=== PATIENT | male | born 1935 | race Caucasian/White ===

== ENCOUNTER 2020-06-27 12:59 | Inpatient (IN) ==
[2020-06-27] MEDS ORDERED: methylPREDNISolone SOD SUCC 125 MG/2 ML VIAL IV ONE (13:05)
[2020-06-27] MEDS ORDERED: AZITHROMYCIN 500 MG in DEXTROSE 5% IN WATER 250 ML IV ONE (13:05)
[2020-06-27] MEDS ORDERED: IPRATROPIUM/ALBUTEROL 3 ML AMPUL.NEB NEB ONE ×2 (13:05→13:06)
[2020-06-27] MEDS: METOPROLOL TARTRATE 5 MG/5 ML VIAL IV SCH ×3 (14:08→16:00)
--- NOTE | 2020-06-27 14:20 | Emergency Department Note ---
SOB HPI General Chief Complaint: Shortness of Breath/Dyspnea Stated Complaint: shortness of breath, hx of COPD Time Seen by Provider: 06/27/20 13:05 Source: patient Mode of arrival: wheelchair Limitations: no limitations History of Present Illness HPI Narrative: Narrative: 85-year-old male presents with increasing shortness of breath over the last 5 days. He is on 2 L of oxygen at home and has had to bump it up to 3 and still cannot catch his breath. He does have severe COPD. States his cough is much worse than usual and he is coughing up green sputum. [facility], they did labs over there, his rapid Covid was negative, chest x-ray showed possible pneumonia. They sent him over here for further evaluation. He arrives with a heart rate in the 140s and is extremely short of breath. Speaking 2 words at a time. Denies fever or chills. No nausea, vomiting, or diarrhea. Does have weakness and generally feels poor. States his breathing is much worse than usual. No nasal congestion or sore throat. No ill contacts. No recent travel. Related Data Home Medications Medication Instructions Recorded Confirmed budesonide-formoterol HFA 160 4 inh INHALATION Q12H 05/20/17 06/27/20 mcg-4.5 mcg/actuation aerosol inhaler ipratropium 0.5 mg-albuterol 3 mg 4 - 5 ml INHALATION DAILY 05/20/17 06/27/20 (2.5 mg base)/3 mL nebulization soln tiotropium bromide 2.5 2 puff INHALATION QDAY 05/20/17 06/27/20 mcg/actuation mist for inhalation Previous Rx's Medication Instructions Recorded Portable Oxygen Concentrator #1 ea 04/20/18 Portable Nebulizer #1 ea 02/16/19 diltiazem HCl 180 mg capsule,24 180 mg PO QDAY #90 cap 07/19/19 hr,extended release rivaroxaban 20 mg tablet 20 mg PO QDAY #90 tab 03/09/20 lisinopril 20 1 tab PO QDAY #90 tab 03/29/20 mg-hydrochlorothiazide 25 mg tablet Allergies Allergy/AdvReac Type Severity Reaction Status Date / Time No Known Drug Allergies Allergy Verified 06/27/20 13:02 Review of Systems ROS ROS Narrative: Narrative: All systems ED: reviewed and negative except as stated. 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) Foreign body in right upper extremity (Acute) Major depressive disorder (Chronic) Sleep-related hypoventilation (Chronic) Osteoarthritis (Chronic) Other benign neoplasm of skin of trunk (Chronic) Actinic keratosis (Chronic) Seborrheic keratosis (Chronic) Tobacco use (Chronic) 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) use of anticoagulants (Chronic) Malignant melanoma (Chronic) Primary generalized hypertrophic osteoarthrosis (Chronic) Obstructive sleep apnea (Chronic) Mitral regurgitation (Chronic) Tricuspid regurgitation (Chronic) Mild aortic sclerosis (Chronic) Left ventricular hypertrophy (Chronic) 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) Peripheral edema (Chronic) History of tobacco use (Chronic) Urinary frequency (Chronic) Rhinitis, allergic (Chronic) Postnasal drip (Chronic) Melanoma of skin (Chronic) Impaired fasting glucose (Chronic) Contracture of palmar fascia (Chronic) Pneumonia (Chronic ~08/2017) Bowel disease (Chronic) Rheumatic fever (Chronic) Hypertension, essential (Chronic) Atrial fibrillation (Chronic) COPD (chronic obstructive pulmonary disease) (Chronic) Emphysema of lung (Chronic) Community acquired pneumonia (Chronic) Atrial fibrillation with RVR (Chronic) Dyspnea (Chronic) Medical History Actinic keratoses (Chronic) Actinic keratosis (Chronic) Atrial fibrillation (Chronic) 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) Bowel disease (Chronic) Chronic hypoxemic respiratory failure (Chronic) Contracture of palmar fascia (Chronic) COPD (chronic obstructive pulmonary disease) (Chronic) Emphysema of lung (Chronic) Hemangioma (Chronic) History of tobacco use (Chronic) Hypertension, essential (Chronic) Impaired fasting glucose (Chronic) Left ventricular hypertrophy (Chronic) 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 (Chronic) 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 (Chronic) Malignant melanoma (Chronic) R arm Medicare annual wellness visit, subsequent (Acute) Melanoma of skin (Chronic) Mild aortic sclerosis (Chronic) Mitral regurgitation (Chronic) Neoplasm of uncertain behavior of skin (Chronic) Obstructive sleep apnea (Chronic) Osteoarthritis (Chronic) Other benign neoplasm of skin of trunk (Chronic) Peripheral edema (Chronic) Pneumonia (Chronic ~08/2017) In hospital 08/29/2017-09/01/2017 with pneumonia Postnasal drip (Chronic) Primary generalized hypertrophic osteoarthrosis (Chronic) Rheumatic fever (Chronic) x2 Rhinitis, allergic (Chronic) Seborrheic keratosis (Chronic) Sleep-related hypoventilation (Chronic) Solar elastosis (Chronic) Tobacco use (Chronic) former smoker Tricuspid regurgitation (Chronic) Urinary frequency (Chronic) Surgical History H/O colonoscopy (Chronic) 2013 H/O hand surgery (Chronic) 2016 History of herniorrhaphy (Chronic) 2001 History of melanoma excision (Chronic) right arm skin cancer Hx of appendectomy (Chronic) 2011 Family History Father Cancer Mother , at 93 Dementia TIA (transient ischemic attack) Sister Diabetes Brother Stroke Other Lung cancer Social History Smoking Status: Former smoker Alcohol Intake Frequency: a few times a week Substance Use: does not use Exam Narrative Narrative: Narrative: General Limitations: no limitations General appearance: Present alert and other (Short of breath and tachypneic on arrival with a respiratory rate in the 30s and speaking 1-2 words at a time due to shortness of breath.) Head Head: Present atraumatic and normocephalic Eye Eye: Present normal appearance, PERRL, EOMI, conjunctival injection and nystagmus ENT ENT: Present normal exam, normal oropharynx, mucous membranes moist, TM's normal bilaterally and normal external ear exam Neck Neck: Present normal inspection and trachea midline; Absent lymphadenopathy Chest Chest: Present symmetric chest wall rise Respiratory Respiratory: Present wheezes (Greatly diminished lung sounds throughout. Not moving much air at all. Faint expiratory wheezing bilaterally. Moist cough present with green sputum. Positive use of accessory muscles.) Cardiovascular Cardiovascular: Present irregular rhythm (A. fib with RVR in the 140s on arrival) Adbominal Abdominal: Present soft and normal bowel sounds; Absent distention, tenderness, guarding, rebound and rigidity Extremities Extremities: Present normal inspection; Absent pedal edema Neurological Neurological: Present alert and oriented X3 Psychiatric Psychiatric: Present normal affect and normal mood Skin Skin: Present warm (WNL), dry, intact and normal color; Absent cool, hot, diaphoretic and rash Course Course Course Narrative: At 1422 I did speak with the hospitalist, Dr. Caldwell who agrees to except this patient. Vital Signs Vital signs: Vital Signs Temperature 99.9 F H 06/27/20 13:00 Pulse Rate 140 H 06/27/20 13:00 Respiratory Rate 26 H 06/27/20 13:00 Blood Pressure 157/68 06/27/20 13:00 Pulse Oximetry (%) 96 06/27/20 13:00 Temperature 99.9 F H 06/27/20 13:00 Pulse Rate 103 H 06/27/20 14:16 Respiratory Rate 24 H 06/27/20 14:31 Blood Pressure 111/66 06/27/20 14:31 Pulse Oximetry (%) 95 06/27/20 14:16 MDM MDM Narrative Medical decision making narrative: Narrative: Lab Data Lab results reviewed: Yes I reviewed the patient's lab results. Lab results narrative: wbc 16.0, rbc 4.46, hgb 13.3, hct 38.8%, lymph .45, mono 1.97 abs neutrophils 13.50, sodium 126, Potassium 4.1, chloride 86, carbon dioxide 26, anion gap 14, BUN 19, creatinine 0.9, proBNP 12,041, TSH 2.62. Urine is grossly negative, clear, pH 6.0, specific gravity 1.013, ketones negative, glucose negative, proteins negative, ketones negative, occult blood negative, nitrate negative, negative leukocytes. Verenice rapid Covid testing over at [facility] was negative. PCR is pending. Patient was given IV azithromycin and hydrated with normal saline. Also given a DuoNeb which did improve air movement. 125 mg of Solu-Medrol IV. Patient will require admission for ongoing IV antibiotic therapy and supportive care due to respiratory distress. Radiology Data Radiology results reviewed: Yes I reviewed the patient's radiology results. Discharge Plan Patient/Caregiver Discharge Instructions Pt seen by EDITORIAL SPECIALIST/PA only: Yes Clinical Impression: Pneumonia, A-fib, Sepsis, History of COPD, Respiratory failure Patient Disposition: Xfer As Inpt ([facility]) Condition: Serious Follow up with: Garth Pederson DO [Primary Care Provider] - Prescriptions: No Action (DME) Portable Oxygen Concentrator Qty: 1 RF: 0 (DME) Portable Nebulizer Qty: 1 RF: 0 diltiazem HCl 180 mg capsule,extended release 24 hr 180 mg PO QDAY Qty: 90 RF: 3 Xarelto 20 mg tablet 20 mg PO QDAY Qty: 90 RF: 3 lisinopril-hydrochlorothiazide 20-25 mg tablet 1 tab PO QDAY Qty: 90 RF: 1 budesonide-formoterol [Symbicort] 160-4.5 mcg/actuation HFA aerosol inhaler 4 inh INHALATION Q12H RF: 0 tiotropium bromide [Spiriva Respimat] 2.5 mcg/actuation mist 2 puff INHALATION QDAY RF: 0 ipratropium-albuterol 0.5 mg-3 mg(2.5 mg base)/3 mL solution for nebulization 4 - 5 ml INHALATION DAILY RF: 0
--- NOTE | 2020-06-27 14:31 | Emergency Department Note ---
SOB HPI <Paulette Latif, STUDENT - Last Filed: 06/27/20 17:41> General Chief Complaint: Shortness of Breath/Dyspnea Stated Complaint: shortness of breath, hx of COPD Time Seen by Provider: 06/27/20 13:05 Source: patient Mode of arrival: wheelchair Limitations: physical limitation (due to shortness of breath ) History of Present Illness HPI Narrative: Narrative: 85-year-old male that was sent over from [facility] care for management of increased shortness of breath with possible pneumonia. He states he is normally on 2l/NC O2 at home and his SaO2 is in the 94-97%. He has had to increase his O2 to 3l/min and is still short of breath with SaO2 < 90%. He reports increased difficulty breathing, cough with sputum production, with intermittent hemoptysis. He denies chest pain, palpitations, fever, chills, nausea or vomiting. Related Data Home Medications Medication Instructions Recorded Confirmed budesonide-formoterol HFA 160 2 puff INHALATION BID 05/20/17 06/27/20 mcg-4.5 mcg/actuation aerosol inhaler ipratropium 0.5 mg-albuterol 3 mg 4 - 5 ml INHALATION DAILY 05/20/17 06/27/20 (2.5 mg base)/3 mL nebulization soln tiotropium bromide 2.5 2 puff INHALATION QDAY 05/20/17 06/27/20 mcg/actuation mist for inhalation Previous Rx's Medication Instructions Recorded Portable Oxygen Concentrator #1 ea 04/20/18 Portable Nebulizer #1 ea 02/16/19 diltiazem HCl 180 mg capsule,24 180 mg PO QDAY #90 cap 07/19/19 hr,extended release rivaroxaban 20 mg tablet 20 mg PO QDAY #90 tab 03/09/20 lisinopril 20 1 tab PO QDAY #90 tab 03/29/20 mg-hydrochlorothiazide 25 mg tablet Allergies Allergy/AdvReac Type Severity Reaction Status Date / Time No Known Drug Allergies Allergy Verified 06/27/20 16:37 Review of Systems <Paulette Latif, STUDENT - Last Filed: 06/27/20 17:41> ROS ROS Narrative: Narrative: All systems ED: reviewed and negative except as stated. PFSH <Paulette Latif, STUDENT - Last Filed: 06/27/20 17:41> Narrative Patient History Narrative: Narrative: Medical/Surgical/Family History All Active Problems Pneumonia (Acute) A-fib (Acute) Sepsis (Acute) History of COPD (Acute) Respiratory failure (Acute) SOB (shortness of breath) (Acute) Medicare annual wellness visit, subsequent (Acute) Chronic hypoxemic respiratory failure (Chronic) Actinic keratoses (Chronic) Hemangioma (Chronic) Lentigines (Chronic) Solar elastosis (Chronic) Neoplasm of uncertain behavior of skin (Chronic) Foreign body in right upper extremity (Acute) Major depressive disorder (Chronic) Sleep-related hypoventilation (Chronic) Osteoarthritis (Chronic) Other benign neoplasm of skin of trunk (Chronic) Actinic keratosis (Chronic) Seborrheic keratosis (Chronic) 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 (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) Malignant melanoma (Chronic) Primary generalized hypertrophic osteoarthrosis (Chronic) Obstructive sleep apnea (Chronic) Mitral regurgitation (Chronic) Tricuspid regurgitation (Chronic) Mild aortic sclerosis (Chronic) Left ventricular hypertrophy (Chronic) 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) Peripheral edema (Chronic) History of tobacco use (Chronic) Urinary frequency (Chronic) Rhinitis, allergic (Chronic) Postnasal drip (Chronic) Melanoma of skin (Chronic) Impaired fasting glucose (Chronic) Contracture of palmar fascia (Chronic) Pneumonia (Chronic ~08/2017) Bowel disease (Chronic) Rheumatic fever (Chronic) Hypertension, essential (Chronic) Atrial fibrillation (Chronic) COPD (chronic obstructive pulmonary disease) (Chronic) Emphysema of lung (Chronic) Community acquired pneumonia (Chronic) Atrial fibrillation with RVR (Chronic) Dyspnea (Chronic) Medical History Actinic keratoses (Chronic) Actinic keratosis (Chronic) Atrial fibrillation (Chronic) 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) Bowel disease (Chronic) Chronic hypoxemic respiratory failure (Chronic) Contracture of palmar fascia (Chronic) COPD (chronic obstructive pulmonary disease) (Chronic) Emphysema of lung (Chronic) Hemangioma (Chronic) History of tobacco use (Chronic) Hypertension, essential (Chronic) Impaired fasting glucose (Chronic) Left ventricular hypertrophy (Chronic) Lentigines (Chronic) long-term (current) use of anticoagulants (Chronic) Malignant melanoma (Chronic) R arm Medicare annual wellness visit, subsequent (Acute) Melanoma of skin (Chronic) Mild aortic sclerosis (Chronic) Mitral regurgitation (Chronic) Neoplasm of uncertain behavior of skin (Chronic) Obstructive sleep apnea (Chronic) Osteoarthritis (Chronic) Other benign neoplasm of skin of trunk (Chronic) Peripheral edema (Chronic) Pneumonia (Chronic ~08/2017) In hospital 08/29/2017-09/01/2017 with pneumonia Postnasal drip (Chronic) Primary generalized hypertrophic osteoarthrosis (Chronic) Rheumatic fever (Chronic) x2 Rhinitis, allergic (Chronic) Seborrheic keratosis (Chronic) Sleep-related hypoventilation (Chronic) Solar elastosis (Chronic) Tobacco use (Chronic) former smoker Tricuspid regurgitation (Chronic) Urinary frequency (Chronic) Surgical History H/O colonoscopy (Chronic) 2013 H/O hand surgery (Chronic) 2016 History of herniorrhaphy (Chronic) 2000 History of melanoma excision (Chronic) right arm skin cancer Hx of appendectomy (Chronic) 2011 Family History Father Cancer Mother , at 93 Dementia TIA (transient ischemic attack) Sister Diabetes Brother Stroke Other Lung cancer Social History Smoking Status: Former smoker Alcohol Intake Frequency: a few times a week Substance Use: does not use Exam <Paulette Latif STUDENT - Last Filed: 06/27/20 17:41> Narrative Narrative: Narrative: General Limitations: physical limitation (due to shortness of breath ) General appearance: Present alert and in distress Head Head: Present atraumatic, normocephalic and normal inspection Eye Eye: Present normal appearance and PERRL ENT ENT: Present normal exam, normal oropharynx and mucous membranes moist Neck Neck: Present normal inspection, full ROM and trachea midline; Absent tenderness Chest Chest: Present symmetric chest wall rise Respiratory Respiratory: Present respiratory distress, rales/crackles, wheezes and accessory muscle use Cardiovascular Cardiovascular: Present tachycardia and irregular rhythm Adbominal Abdominal: Present soft and distention; Absent tenderness Rectal Rectal: Present deferred Extremities Extremities: Present normal inspection Neurological Neurological: Present alert, oriented X3 and CN II-XII intact Psychiatric Psychiatric: Present normal affect and normal mood Skin Skin: Present warm (WNL), dry and pallor Course <Paulette Latif, STUDENT - Last Filed: 06/27/20 17:41> Vital Signs Vital signs: Vital Signs Temperature 99.9 F H 06/27/20 13:00 Pulse Rate 140 H 06/27/20 13:00 Respiratory Rate 26 H 06/27/20 13:00 Blood Pressure 157/68 06/27/20 13:00 Pulse Oximetry (%) 96 06/27/20 13:00 Temperature 98.7 F 06/27/20 17:01 Pulse Rate 71 06/27/20 19:02 Respiratory Rate 25 H 06/27/20 19:02 Blood Pressure 135/89 06/27/20 19:02 Pulse Oximetry (%) 97 06/27/20 19:02 <OPAL HymanP - Last Filed: 06/27/20 19:08> Vital Signs Vital signs: Vital Signs Temperature 99.9 F H 06/27/20 13:00 Pulse Rate 140 H 06/27/20 13:00 Respiratory Rate 26 H 06/27/20 13:00 Blood Pressure 157/68 06/27/20 13:00 Pulse Oximetry (%) 96 06/27/20 13:00 Temperature 98.7 F 06/27/20 17:01 Pulse Rate 71 06/27/20 19:02 Respiratory Rate 25 H 06/27/20 19:02 Blood Pressure 135/89 06/27/20 19:02 Pulse Oximetry (%) 97 06/27/20 19:02 MDM <Paulette Latif, STUDENT - Last Filed: 06/27/20 17:41> MDM Narrative Medical decision making narrative: Narrative: Patient in respiratory distress with increased oxygen needs. SaO2 improved after HHN to 96%. ABG with PH of 7.47, CO2 of 36, PaO2 of 72%. WBC is elevated at 16. Serum lactate elevated at 2.1, procalcitonin elevated at 0.42. HR rapid and irregular, EKG results show afib with RVR, rates 140-160's. HR controlled with IV metoprolol. Patient is anticoagulated with home rivaroxaban 20 mg PO QD. Verenice negative, [facility] COVID test done at [facility] is pending. CXR with possible BLL pneumonia in the setting of COPD. The hospitalist was consulted for admission for ongoing treatment of his pneumonia with hypxia and a-fib RVR. The case was discussed with Dr. Caldwell, he accepted the patient for admission. CBC and CMP were also done at [facility] today, we did not repeat in the ED. Lab Data Labs: Lab Results 06/27/20 06/27/20 Range/Units 12:20 13:15 VBG Lactic Acid 2.1 H (0.5-2.0) mmol/L Procalcitonin 0.42 H (<0.10) ng/mL <ITZEL Hyman - Last Filed: 06/27/20 19:08> Lab Data Labs: Lab Results 06/27/20 06/27/20 Range/Units 12:20 13:15 VBG Lactic Acid 2.1 H (0.5-2.0) mmol/L Procalcitonin 0.42 H (<0.10) ng/mL Discharge Plan Patient/Caregiver Discharge Instructions Pt seen by ENVIRONMENTAL CONSERVATION PROFESSOR/PA only: Yes Clinical Impression: Pneumonia, A-fib, Sepsis, History of COPD, Respiratory failure Patient Disposition: Xfer As Inpt ([facility]) Condition: Serious Discharge Date/Time: 06/27/20 15:26
--- NOTE | 2020-06-27 14:32 | Internal Med History&Physical ---
HPI History of Present Illness Patient information: Note initiated : 06/27/20 at 2:29 pm Service Date, if different from initiated Date: [] Patient: Christoph Neff a 85 y/o M admitted on for SOB, Hx Of COPD. Chief Complaint: Shortness of breath History of present illness: Mr. Neff is a 85 year old M with history of O2 dependent COPD/HTN/A. fib/anticoagulation who presents to the ER with worsening shortness of breath for the last 2 weeks. Symptoms accompanied with increasing yellow productive sputum, fatigue, weakness, inability to function. Over the last couple of days he has had profound loss of appetite/fatigue myalgia and low-grade fever. Patient has not been able to perform ADLs. He went to the urgent care with above symptoms. Initial work-up was consistent with bilateral pneumonia/elevated white count at 16, elevated lactate at 2.6, A. fib RVR, sodium 126. Rapid Covid negative. Covid PCR pending. Hospitalist service was consulted after patient was started on metoprolol for rate control. At the time of evaluation patient is unable to talk in full sentences. He is anxious/restless. Is currently on 3 L oxygen. He endorses to history as above. Lives with his Jade. Denies recent exposure to sick contacts including Covid symptoms. Endorses to myalgia, but no dysuria: Bloody stool, diarrhea, joint pain or rash Review of systems 10 point review system was performed and is negative except for 1 discussed above PFSH PFSH All Active Problems Pneumonia (Acute) A-fib (Acute) Sepsis (Acute) History of COPD (Acute) Respiratory failure (Acute) SOB (shortness of breath) (Acute) Medicare annual wellness visit, subsequent (Acute) Chronic hypoxemic respiratory failure (Chronic) Actinic keratoses (Chronic) Hemangioma (Chronic) Lentigines (Chronic) Solar elastosis (Chronic) Neoplasm of uncertain behavior of skin (Chronic) Foreign body in right upper extremity (Acute) Major depressive disorder (Chronic) Sleep-related hypoventilation (Chronic) Osteoarthritis (Chronic) Other benign neoplasm of skin of trunk (Chronic) Actinic keratosis (Chronic) Seborrheic keratosis (Chronic) 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 (Chronic) 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) Malignant melanoma (Chronic) Primary generalized hypertrophic osteoarthrosis (Chronic) Obstructive sleep apnea (Chronic) Mitral regurgitation (Chronic) Tricuspid regurgitation (Chronic) Mild aortic sclerosis (Chronic) Left ventricular hypertrophy (Chronic) 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) Peripheral edema (Chronic) History of tobacco use (Chronic) Urinary frequency (Chronic) Rhinitis, allergic (Chronic) Postnasal drip (Chronic) Melanoma of skin (Chronic) Impaired fasting glucose (Chronic) Contracture of palmar fascia (Chronic) Pneumonia (Chronic ~08/2017) Bowel disease (Chronic) Rheumatic fever (Chronic) Hypertension, essential (Chronic) Atrial fibrillation (Chronic) COPD (chronic obstructive pulmonary disease) (Chronic) Emphysema of lung (Chronic) Community acquired pneumonia (Chronic) Atrial fibrillation with RVR (Chronic) Dyspnea (Chronic) Medical History Actinic keratoses (Chronic) Actinic keratosis (Chronic) Atrial fibrillation (Chronic) 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) Bowel disease (Chronic) Chronic hypoxemic respiratory failure (Chronic) Contracture of palmar fascia (Chronic) COPD (chronic obstructive pulmonary disease) (Chronic) Emphysema of lung (Chronic) Hemangioma (Chronic) History of tobacco use (Chronic) Hypertension, essential (Chronic) Impaired fasting glucose (Chronic) Left ventricular hypertrophy (Chronic) 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 (Chronic) 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) Malignant melanoma (Chronic) R arm Medicare annual wellness visit, subsequent (Acute) Melanoma of skin (Chronic) Mild aortic sclerosis (Chronic) Mitral regurgitation (Chronic) Neoplasm of uncertain behavior of skin (Chronic) Obstructive sleep apnea (Chronic) Osteoarthritis (Chronic) Other benign neoplasm of skin of trunk (Chronic) Peripheral edema (Chronic) Pneumonia (Chronic ~08/2017) In hospital 08/29/2017-09/01/2017 with pneumonia Postnasal drip (Chronic) Primary generalized hypertrophic osteoarthrosis (Chronic) Rheumatic fever (Chronic) x2 Rhinitis, allergic (Chronic) Seborrheic keratosis (Chronic) Sleep-related hypoventilation (Chronic) Solar elastosis (Chronic) Tobacco use (Chronic) former smoker Tricuspid regurgitation (Chronic) Urinary frequency (Chronic) Surgical History H/O colonoscopy (Chronic) 2012 H/O hand surgery (Chronic) 2016 History of herniorrhaphy (Chronic) 2000 History of melanoma excision (Chronic) right arm skin cancer Hx of appendectomy (Chronic) 2011 Family History Father Cancer Mother , at 93 Dementia TIA (transient ischemic attack) Sister Diabetes Brother Stroke Other Lung cancer Social History marital status: smoking status: Former smoker quit date: 05/26/81 alcohol intake frequency: a few times a week substance use type: does not use MEDS/ALLERGIES Home Medications and Allergies Home Medications Medication Instructions Recorded Confirmed Type budesonide-formoterol HFA 160 4 inh INHALATION Q12H 05/20/17 06/27/20 History mcg-4.5 mcg/actuation aerosol inhaler ipratropium 0.5 mg-albuterol 3 mg 4 - 5 ml INHALATION DAILY 05/20/17 06/27/20 History (2.5 mg base)/3 mL nebulization soln tiotropium bromide 2.5 2 puff INHALATION QDAY 05/20/17 06/27/20 History mcg/actuation mist for inhalation Portable Oxygen Concentrator #1 ea 04/20/18 06/27/20 Rx Portable Nebulizer #1 ea 02/16/19 06/27/20 Rx diltiazem HCl 180 mg capsule,24 180 mg PO QDAY #90 cap 07/19/19 06/27/20 Rx hr,extended release rivaroxaban 20 mg tablet 20 mg PO QDAY #90 tab 03/09/20 06/27/20 Rx lisinopril 20 1 tab PO QDAY #90 tab 03/29/20 06/27/20 Rx mg-hydrochlorothiazide 25 mg tablet Allergies Allergy/AdvReac Type Severity Reaction Status Date / Time No Known Drug Allergies Allergy Verified 06/27/20 13:02 EXAM Constitutional Vitals: Temp Pulse Resp BP Pulse Ox 99.9 F H 103 H 22 119/77 95 06/27/20 13:00 06/27/20 14:16 06/27/20 14:16 06/27/20 14:16 06/27/20 14:16 Alert but anxious, labored breathing Head normocephalic Oral cavity moist No ear nose discharge Eye movement symmetrical Neck supple no lymphadenopathy S1-S2 irregular tachycardia narrow complex Labored breathing on 4 L oxygen Nondistended nontender abdomen Lower extremity no cyanosis clubbing or joint swelling Skin no suspicious lesion Psych anxious but alert cooperative Neuro normal higher function DATA Data Completed and Pending Labs: Labs from last 24 hours 06/27/20 06/27/20 13:15 12:20 VBG Lactic Acid Pending Procalcitonin Pending A/P Narrative A/P Narrative: * Acute hypoxic respiratory failure-secondary to COPD exacerbation/bilateral pneumonia. Initiate noninvasive mechanical ventilation for increased work of breathing * Bilateral [id number] antibiotic coverage. Pancultures/aspiration precautions * Severe sepsis-sepsis management per guidelines. Elevated lactate/leukocytosis. On broad-spectrum antibiotics * A. fib RVR-Cardizem drip. Likely sepsis endorgan dysfunction * COPD exacerbation-IV steroids/bronchodilators/pulmonary toilet * History of hypertension. Hold antihypertensives until systolics over 140/sepsis resolves * Anticoagulation for CVA prophylaxis on rivaroxaban * Full code Plan * Inpatient ICU admission, [place] 2 score over 17 significant hypomotility * Noninvasive mechanical ventilation * Serial blood gas/chest imaging * Broad antibiotic coverage * Diltiazem drip * Sepsis management guidelines * PT OT nutrition support * Discharge planning per case management Time Spent With Patient Time: Total time spent is greater than 50% in coordination of care (as documented) at patient's floor/unit and/or counseling patient:
[2020-06-27] MEDS ORDERED: 0.9 % SODIUM CHLORIDE 1,000 ML IV ONE (14:33)
[2020-06-27] MEDS ORDERED: METOPROLOL TARTRATE 5 MG/5 ML VIAL IV PRN (15:28)
[2020-06-27] MEDS ORDERED: MELATONIN 3 MG TABLET PO PRN (15:28)
[2020-06-27] MEDS ORDERED: POTASSIUM CHLORIDE 40 MEQ in DEXTROSE 5% IN WATER 500 ML IV PRN (15:28)
[2020-06-27] MEDS ORDERED: MAGNESIUM SULFATE 2 GM/50 ML BAG IV PRN (15:28)
[2020-06-27] MEDS ORDERED: ACETAMINOPHEN 650 MG/65 ML BAG IV PRN (15:28)
[2020-06-27] MEDS ORDERED: ONDANSETRON 4 MG/2 ML VIAL IV PRN (15:28)
[2020-06-27] MEDS ORDERED: POTASSIUM CHLORIDE 20 MEQ PACKET PO PRN (15:28)
[2020-06-27] MEDS ORDERED: ONDANSETRON 4 MG ODT TABLET SL PRN (15:28)
[2020-06-27] MEDS ORDERED: BISACODYL 10 MG SUPP.RECT PR PRN (15:28)
[2020-06-27] MEDS ORDERED: ACETAMINOPHEN 325 MG TABLET PO PRN (15:28)
[2020-06-27] MEDS ORDERED: DILTIAZEM 125 MG in 0.9 % SODIUM CHLORIDE 100 ML IV SCH (15:28)
[2020-06-27] MEDS ORDERED: BUDESONIDE FORMOTEROL INHALATION SCH (15:28)
[2020-06-27] MEDS ORDERED: POLYETHYLENE GLYCOL 3350 17 GM PACKET PO PRN (15:28)
[2020-06-27] MEDS ORDERED: PIPERACILLIN SODIUM/TAZOBACTAM 3.375 GM in DEXTROSE 5% IN WATER 50 ML IV SCH (15:28)
[2020-06-27] MEDS: 0.9 % SODIUM CHLORIDE 1,000 ML IV SCH (15:43)
[2020-06-27] MEDS: PIPERACILLIN SODIUM/TAZOBACTAM 3.375 GM in DEXTROSE 5% IN WATER 50 ML IV SCH ×3 (15:58→23:46)
[2020-06-27] MEDS: DILTIAZEM 125 MG in 0.9 % SODIUM CHLORIDE 100 ML IV SCH (15:58)
[2020-06-27] MEDS ORDERED: IPRATROPIUM/ALBUTEROL 3 ML AMPUL.NEB NEB PRN (17:48)
[2020-06-27] MEDS: IPRATROPIUM/ALBUTEROL 3 ML AMPUL.NEB NEB PRN ×2 (17:50→21:45)
[2020-06-27] MEDS: SENNOSIDES/DOCUSATE SODIUM 1 TAB TABLET PO SCH (20:15)
[2020-06-27] MEDS: DOCUSATE SODIUM 100 MG CAPSULE PO SCH (20:15)
[2020-06-27] MEDS: 0.9 % SODIUM CHLORIDE 10 ML SYRINGE IV SCH (20:16)
[2020-06-27] MEDS: BUDESONIDE FORMOTEROL INH SCH (20:54)
[2020-06-27] MEDS: methylPREDNISolone SOD SUCC 125 MG/2 ML VIAL IV SCH (20:59)
[2020-06-27] MEDS ORDERED: HEPARIN 5,000 UNIT/ML VIAL SQ SCH (21:00)
[2020-06-27] MEDS: BUDESONIDE 0.5 MG/2 ML AMPUL.NEB NEB SCH (21:45)
[2020-06-28] MEDS: DILTIAZEM 125 MG in 0.9 % SODIUM CHLORIDE 100 ML IV SCH (04:51)
[2020-06-28 06:13] LABS: Basophils # (Auto) 0.02 K/mcL (0.00-0.20); Basophils % (Auto) 0.2 % (0.0-2.0); Eosinophils # (Auto) 0 K/mcL (0.00-0.70); Eosinophils % (Auto) 0 % (0.0-7.0); Hematocrit 35.9 % (41.0-55.0); Hemoglobin 12.4 g/dL (13.5-16.5); Lymphocytes # (Auto) 0.41 K/mcL (1.50-4.80); Mean Cell Volume 87.1 fL (80.0-100.0); Mean Corpuscular HGB Conc 34.5 g/dL (31.0-36.0); Mean Platelet Volume 9.2 fL (7.4-10.4); Monocytes # (Auto) 0.23 K/mcL (0.10-0.90); Monocytes % (Auto) 2.3 % (1.0-12.0); Neutrophils % (Auto) 93.5 % (38.0-78.0); Platelet Count 322 K/mcL (140-440); RBC 4.12 M/mcL (4.50-5.90); Red Cell Distribution Width 12.6 % (11.5-14.5); WBC 10.2 K/mcL (4.5-11.0)
[2020-06-28 06:39] LABS: ALT/SGPT 25 U/L (<40); AST/SGOT 33 U/L (<40); Albumin 2.8 gm/dL (3.2-5.2); Albumin/Globulin Ratio 0.9 (1.0-2.3); Alkaline Phosphatase 71 U/L (39-117); Bilirubin,Direct < 0.2 mg/dL (<0.3); Bilirubin,Total 0.3 mg/dL (0.1-1.0); Blood Urea Nitrogen 17 mg/dL (8-23); Calcium 8.7 mg/dL (8.6-10.4); Carbon Dioxide 25 mmol/L (22-30); Chloride 90 mmol/L (96-108); Globulin 3.2 gm/dL (2.2-3.7); Glomerular Filtration Rate 86; Glucose 128 mg/dL (70-105); Lactate Dehydrogenase 184 U/L (135-225); Phosphorous 3.7 mg/dL (2.5-4.5); Triglycerides 46 mg/dL (<150); Uric Acid 3.8 mg/dL (2.5-8.0)
[2020-06-28 06:50] LABS: Ferritin 526.7 ng/mL (30.0-400.0)
[2020-06-28] MEDS: PIPERACILLIN SODIUM/TAZOBACTAM 3.375 GM in DEXTROSE 5% IN WATER 50 ML IV SCH ×4 (07:08→23:45)
[2020-06-28] MEDS: 0.9 % SODIUM CHLORIDE 10 ML SYRINGE IV SCH ×3 (07:09→20:44)
[2020-06-28] MEDS: BUDESONIDE 0.5 MG/2 ML AMPUL.NEB NEB SCH ×2 (08:33→20:10)
[2020-06-28] MEDS ORDERED: IPRATROPIUM/ALBUTEROL 3 ML AMPUL.NEB NEB SCH (09:00)
[2020-06-28] MEDS ORDERED: TIOTROPIUM BROMIDE INHALATION SCH (09:00)
[2020-06-28] MEDS: DILTIAZEM 180 MG CAP.XL.24H PO SCH (09:16)
[2020-06-28] MEDS: methylPREDNISolone SOD SUCC 125 MG/2 ML VIAL IV SCH ×2 (09:17→20:44)
[2020-06-28] MEDS: MULTIVIT,THER IRON,CA,FA & MIN 1 TABLET PO SCH (09:17)
[2020-06-28] MEDS: DOCUSATE SODIUM 100 MG CAPSULE PO SCH ×2 (09:17→20:45)
[2020-06-28] MEDS: BUDESONIDE FORMOTEROL INH SCH ×2 (09:17→20:45)
[2020-06-28] MEDS: TIOTROPIUM BROMIDE 18 MCG INHALANT INH SCH (09:18)
[2020-06-28] MEDS ORDERED: DILTIAZEM 125 MG in 0.9 % SODIUM CHLORIDE 100 ML IV PRN (10:00)
--- NOTE | 2020-06-28 10:16 | Internal Med Progress Note ---
SUBJECTIVE Subjective Patient information: Note initiated : 06/28/20 at 10:12 am Service Date, if different from initiated Date: [] Patient: Christoph Neff a 85 y/o M admitted on 06/27/20 for SOB, Hx Of COPD. Chief Complaint: [] Interval history: Mr. Neff is a 85 year old M with history of O2 dependent COPD/HTN/A. fib/anticoagulation who presents to the ER with worsening shortness of breath for the last 2 weeks. Symptoms accompanied with increasing yellow productive sputum, fatigue, weakness, inability to function. Over the last couple of days he has had profound loss of appetite/fatigue myalgia and low-grade fever. Patient has not been able to perform ADLs. He went to the urgent care with above symptoms. Initial work-up was consistent with bilateral pneumonia/elevated white count at 16, elevated lactate at 2.6, A. fib RVR, sodium 126. Rapid Covid negative. Covid PCR pending. Hospitalist service was consulted after patient was started on metoprolol for rate control. At the time of evaluation patient is unable to talk in full sentences. He is anxious/restless. Is currently on 3 L oxygen. He endorses to history as above. Lives with his Jade. Denies recent exposure to sick contacts including Covid symptoms. Endorses to myalgia, but no dysuria: Bloody stool, diarrhea, joint pain or rash 2/3-patient doing a lot better. Currently on 3 days oxygen. Overnight on CPAP. Able to talk in full sentences. Covid negative. Rhinovirus positive. On antibiotic coverage for bilateral pneumonia. Continue aspiration precautions/ST eval today. Rate controlled on Cardizem drip. Transition to oral Cardizem. Continue steroids/bronchodilators/pulmonary toileting and nutrition support. Constitutional Vitals: Vital Signs Temp Pulse Resp BP Pulse Ox 97.8 F 92 H 20 113/70 97 06/28/20 08:01 06/28/20 09:39 06/28/20 09:39 06/28/20 09:01 06/28/20 09:39 Period Temp Pulse Resp BP Sys/Richardson Pulse Ox Last 24 Hr 97.6 F-99.9 F 52-140 17-36 88-157/60-127 88-100 Intake and Output 06/27/20 06/28/20 06/28/20 21:59 05:59 13:59 Intake Total 1350 550 290 Output Total 175 1325 Balance 1175 -775 290 Weight 84.141 kg Alert oriented Minimally labored breathing on 3 L oxygen Nondistended abdomen No anxiety Intake & Output: Intake & Output 06/27/20 06/28/20 06/28/20 21:59 05:59 13:59 Intake Total 1350 550 290 Output Total 175 1325 Balance 1175 -775 290 Weight 84.141 kg Intake: IV 1350 50 50 Sodium Chloride 0.9% 1,000 ml @ 1000 Wide Open IV BOLUS ONE Rx#: [id number] Zithromax 500 mg In Dextrose 5% 250 in Water 250 ml @ 250 mls/hr IV ONCE ONE Rx#:[id number] Zosyn 3.375 gm In Dextrose 5% 100 50 50 in Water 50 ml @ 100 mls/hr IV Q6H [facility] Rx#:[id number] Oral 500 240 Output: Void Amount 175 1325 Other: Percent of Meal Consumed 100% Urine Appearance Clear Clear Urine Color Dark Yellow Pale Urine Odor Normal Normal OBJ DATA Labs CBC & Chem 7: 06/28/20 04:56 06/28/20 04:56 Labs: Abnormal Lab Results 06/28/20 06/28/20 06/27/20 04:56 04:56 13:15 RBC 4.12 L Hgb 12.4 L Hct 35.9 L Neut % (Auto) 93.5 H Lymph % (Auto) 4.0 L Lymph # (Auto) 0.41 L Absolute Neutrophils 9.51 H VBG Lactic Acid 2.1 H Sodium 128 L Chloride 90 L Glucose 128 H Ferritin 526.7 H C-Reactive Protein 19.20 H Albumin 2.8 L Albumin/Globulin Ratio 0.9 L Procalcitonin 06/27/20 12:20 RBC Hgb Hct Neut % (Auto) Lymph % (Auto) Lymph # (Auto) Absolute Neutrophils VBG Lactic Acid Sodium Chloride Glucose Ferritin C-Reactive Protein Albumin Albumin/Globulin Ratio Procalcitonin 0.42 H Meds: Medications Acetaminophen (Tylenol) 650 mg PO Q4-6HP PRN; Protocol PRN Reason: Per Pain Protocol/Fever > 101 Albuterol/Ipratropium (Duoneb) 3 ml NEB Q4HP PRN PRN Reason: Shortness Of Breath Last Admin: 06/27/20 17:50 Dose: 3 ml Documented by: Bisacodyl (Dulcolax) 10 mg MT Q2-3DAYS PRN PRN Reason: Constipation Budesonide (Pulmicort) 0.5 mg NEB Q12 [facility] Last Admin: 06/28/20 08:33 Dose: 0.5 mg Documented by: Diltiazem HCl (Cardizem Cd) 180 mg PO DAILY [facility] Last Admin: 06/28/20 09:16 Dose: 180 mg Documented by: Docusate Sodium (Colace) 100 mg PO BID [facility] Last Admin: 06/28/20 09:17 Dose: 100 mg Documented by: Potassium Chloride 40 meq/ (Dextrose) 520 mls @ 130 mls/hr IV UD PRN PRN Reason: K+ = or < 3.5 Magnesium Sulfate (Magnesium Sulfate) 2 gm in 50 mls @ 50 mls/hr IV UD PRN PRN Reason: MG = or < 1.7 Acetaminophen (Ofirmev) 650 mg in 65 mls @ 130 mls/hr IV Q6HP PRN; Protocol PRN Reason: Per Pain Protocol/Fever > 101 Sodium Chloride (Sodium Chloride 0.9%) 1,000 mls @ 50 mls/hr IV .Q20H [facility] Stop: 06/30/20 03:27 Last Admin: 06/27/20 15:43 Dose: Not Given Documented by: Piperacillin Sod/Tazobactam (Sod 3.375 gm/ Dextrose) 50 mls @ 100 mls/hr IV Q6H [facility]; Protocol Last Infusion: 06/28/20 07:40 Dose: Infused Documented by: Diltiazem HCl 125 mg/ Sodium (Chloride) 125 mls @ 5 mls/hr IV Q12HP PRN; Protocol PRN Reason: TITRATE TO KEEP HR<100,SBP>90 Iron Carb/Multivit/Equipment Processer Storage/Folic Acid (Multivitamin W/Minerals) 1 tab PO DAILY [facility] Last Admin: 06/28/20 09:17 Dose: 1 tab Documented by: Melatonin (Melatonin 3mg Tablet) 3 mg PO HSP PRN PRN Reason: Insomnia Methylprednisolone Sodium Succinate (Solu-Medrol) 60 mg IV Q12 [facility] Last Admin: 06/28/20 09:17 Dose: 60 mg Documented by: Metoprolol Tartrate (Lopressor) 5 mg IV Q5M PRN PRN Reason: Heart Rate > 140 bpm Ondansetron HCl (Zofran Odt) 4 mg SL Q4-6HP PRN; Protocol PRN Reason: Nausea And Vomiting Ondansetron HCl (Zofran) 4 mg IV Q4-6HP PRN; Protocol PRN Reason: Nausea And Vomiting Budesonide- Formoterol [ Symbicort] 160-4.5 Mcg/Act Inhaler 1 dose INH BID [facility] Last Admin: 06/28/20 09:17 Dose: Not Given Documented by: Polyethylene Glycol (Miralax) 17 gm PO DAILYP PRN PRN Reason: Constipation Potassium Chloride (Klor-Con) 40 meq PO DAILYP PRN PRN Reason: K+ < 3.5 Rivaroxaban (Xarelto) 20 mg PO QPMCC [facility] Senna/Docusate Sodium (Senna Plus Tablet) 1 tab PO HS [facility] Last Admin: 06/27/20 20:15 Dose: Not Given Documented by: Sodium Chloride (Saline Flush) 10 ml IV Q8 [facility] Last Admin: 06/28/20 07:09 Dose: Not Given Documented by: Tiotropium [place] (Spiriva) 36 mcg INH DAILY [facility] Last Admin: 06/28/20 09:18 Dose: Not Given Documented by: A/P Narrative A/P Narrative: * Acute hypoxic respiratory failure-secondary to COPD exacerbation/bilateral pneumonia. Clinically improving with management per guidelines currently on 3 to 4 L oxygen. * Bilateral peygshudb-[id number] broad-spectrum antibiotic coverage. Rhinovirus positive. Sputum cultures pending. White count down from 16-10.2. * Severe sepsis-sepsis management per guidelines. Clinically improving with management per guidelines. * A. fib RVR-rate controlled on Cardizem drip. Transition to oral Cardizem * Euvolemic hyponatremia sodium improved from 1 26-1 28. Likely secondary to thiazide use. * COPD exacerbation-IV steroids/bronchodilators/pulmonary toilet * History of hypertension. Restart antihypertensives once systolics over 140/sepsis resolves * Anticoagulation for CVA prophylaxis on rivaroxaban * Full code Plan * Wean oxygen as tolerated * Pulmonary toilet/bronchodilators/steroids/antibiotics/ST eval * Transition to oral diltiazem * Sepsis management guidelines * PT OT nutrition support * Discharge planning per case management Time Spent With Patient Time: Total time spent is greater than 50% in coordination of care (as documented) at patient's floor/unit and/or counseling patient: QUALITY VTE Deep Vein Thrombosis/Pulmonary Embolism Present on Admission: No
[2020-06-28] MEDS: 0.9 % SODIUM CHLORIDE 1,000 ML IV SCH (15:40)
[2020-06-28] MEDS ORDERED: RIVAROXABAN 20 MG TABLET PO SCH (17:30)
[2020-06-28] MEDS: IPRATROPIUM/ALBUTEROL 3 ML AMPUL.NEB NEB PRN (20:10)
[2020-06-28] MEDS: SENNOSIDES/DOCUSATE SODIUM 1 TAB TABLET PO SCH (20:44)
[2020-06-29] MEDS: IPRATROPIUM/ALBUTEROL 3 ML AMPUL.NEB NEB PRN ×2 (02:12→19:53)
[2020-06-29] MEDS: PIPERACILLIN SODIUM/TAZOBACTAM 3.375 GM in DEXTROSE 5% IN WATER 50 ML IV SCH ×5 (05:51→23:35)
[2020-06-29] MEDS: 0.9 % SODIUM CHLORIDE 10 ML SYRINGE IV SCH ×3 (05:52→21:08)
[2020-06-29 06:29] LABS: Basophils # (Auto) 0.02 K/mcL (0.00-0.20); Basophils % (Auto) 0.1 % (0.0-2.0); Eosinophils # (Auto) 0 K/mcL (0.00-0.70); Eosinophils % (Auto) 0 % (0.0-7.0); Hematocrit 35.6 % (41.0-55.0); Hemoglobin 11.9 g/dL (13.5-16.5); Lymphocytes # (Auto) 0.54 K/mcL (1.50-4.80); Lymphocytes % (Auto) 3.2 % (15.0-49.0); Mean Cell Volume 90.4 fL (80.0-100.0); Mean Corpuscular HGB Conc 33.4 g/dL (31.0-36.0); Mean Platelet Volume 8.9 fL (7.4-10.4); Monocytes # (Auto) 0.58 K/mcL (0.10-0.90); Monocytes % (Auto) 3.4 % (1.0-12.0); Neutrophils % (Auto) 93.3 % (38.0-78.0); Platelet Count 333 K/mcL (140-440); RBC 3.94 M/mcL (4.50-5.90); Red Cell Distribution Width 12.8 % (11.5-14.5); WBC 16.9 K/mcL (4.5-11.0)
--- NOTE | 2020-06-29 06:35 | XRay Report ---
INDICATION: Interval Change. Dyspnea. COPD TECHNIQUE: AP portable semiupright chest x-ray COMPARISON: Previous chest x-rays dated 06/27/2020 FINDINGS: Lungs:Lungs are negative. No focal pulmonary parenchymal infiltrate or mass Heart, vascular:No significant cardiomegaly. Pulmonary vascularity is normal. No pulmonary edema or pulmonary congestion Mediastinum, delta:No mediastinal widening. No hilar mass Pleura:No pleural fluid. No pleural-based mass or calcification Skeletal:Negative. IMPRESSION: 1. Negative AP chest x-ray. 2. No interval change Interpreted and Authenticated by: Garth Boateng 06/29/20
[2020-06-29 07:19] LABS: ALT/SGPT 31 U/L (<40); AST/SGOT 36 U/L (<40); Albumin 2.9 gm/dL (3.2-5.2); Alkaline Phosphatase 68 U/L (39-117); Bilirubin,Direct < 0.2 mg/dL (<0.3); Bilirubin,Total 0.2 mg/dL (0.1-1.0); Blood Urea Nitrogen 20 mg/dL (8-23); Calcium 8.7 mg/dL (8.6-10.4); Carbon Dioxide 26 mmol/L (22-30); Chloride 95 mmol/L (96-108); Glomerular Filtration Rate 86; Glucose 148 mg/dL (70-105); Lactate Dehydrogenase 200 U/L (135-225); Triglycerides 58 mg/dL (<150)
[2020-06-29] MEDS: methylPREDNISolone SOD SUCC 125 MG/2 ML VIAL IV SCH ×2 (08:15→21:07)
[2020-06-29] MEDS: TIOTROPIUM BROMIDE 18 MCG INHALANT INH SCH (08:15)
[2020-06-29] MEDS: DILTIAZEM 180 MG CAP.XL.24H PO SCH (08:16)
[2020-06-29] MEDS: MULTIVIT,THER IRON,CA,FA & MIN 1 TABLET PO SCH (08:16)
[2020-06-29] MEDS: DOCUSATE SODIUM 100 MG CAPSULE PO SCH ×3 (08:16→21:07)
[2020-06-29] MEDS: BUDESONIDE FORMOTEROL INH SCH ×2 (08:17→21:08)
[2020-06-29] MEDS: BUDESONIDE 0.5 MG/2 ML AMPUL.NEB NEB SCH ×2 (09:26→21:10)
[2020-06-29] MEDS ORDERED: ONDANSETRON 4 MG ODT TABLET SL PRN (12:49)
[2020-06-29] MEDS ORDERED: ONDANSETRON 4 MG/2 ML VIAL IV PRN (12:49)
[2020-06-29] MEDS ORDERED: ACETAMINOPHEN 650 MG/65 ML BAG IV PRN (12:49)
[2020-06-29] MEDS ORDERED: MELATONIN 3 MG TABLET PO PRN (12:49)
[2020-06-29] MEDS ORDERED: BISACODYL 10 MG SUPP.RECT PR PRN (12:49)
[2020-06-29] MEDS ORDERED: POTASSIUM CHLORIDE 40 MEQ in DEXTROSE 5% IN WATER 500 ML IV PRN (12:49)
[2020-06-29] MEDS ORDERED: DILTIAZEM 125 MG in 0.9 % SODIUM CHLORIDE 100 ML IV PRN (12:49)
[2020-06-29] MEDS ORDERED: POTASSIUM CHLORIDE 20 MEQ PACKET PO PRN (12:49)
[2020-06-29] MEDS ORDERED: ACETAMINOPHEN 325 MG TABLET PO PRN (12:49)
[2020-06-29] MEDS ORDERED: METOPROLOL TARTRATE 5 MG/5 ML VIAL IV PRN (12:49)
[2020-06-29] MEDS ORDERED: POLYETHYLENE GLYCOL 3350 17 GM PACKET PO PRN (12:49)
[2020-06-29] MEDS ORDERED: MAGNESIUM SULFATE 2 GM/50 ML BAG IV PRN (12:49)
[2020-06-29] MEDS: 0.9 % SODIUM CHLORIDE 1,000 ML IV SCH ×2 (13:20→14:55)
[2020-06-29] MEDS ORDERED: guaiFENesin 600 MG TAB.SR.12H PO PRN (13:45)
--- NOTE | 2020-06-29 14:26 | Internal Med Progress Note ---
SUBJECTIVE Subjective Patient information: Note initiated : 06/29/20 at 2:23 pm Service Date, if different from initiated Date: [] Patient: Christoph Neff a 85 y/o M admitted on 06/27/20 for SOB, Hx Of COPD. Chief Complaint: [] Interval history: Mr. Neff is a 85 year old M with history of O2 dependent COPD/HTN/A. fib/anticoagulation who presents to the ER with worsening shortness of breath for the last 2 weeks. Symptoms accompanied with increasing yellow productive sputum, fatigue, weakness, inability to function. Over the last couple of days he has had profound loss of appetite/fatigue myalgia and low-grade fever. Patient has not been able to perform ADLs. He went to the urgent care with above symptoms. Initial work-up was consistent with bilateral pneumonia/elevated white count at 16, elevated lactate at 2.6, A. fib RVR, sodium 126. Rapid Covid negative. Covid PCR pending. Hospitalist service was consulted after patient was started on metoprolol for rate control. At the time of evaluation patient is unable to talk in full sentences. He is anxious/restless. Is currently on 3 L oxygen. He endorses to history as above. Lives with his Jade. Denies recent exposure to sick contacts including Covid symptoms. Endorses to myalgia, but no dysuria: Bloody stool, diarrhea, joint pain or rash 2/3-patient doing a lot better. Currently on 3 days oxygen. Overnight on CPAP. Able to talk in full sentences. Covid negative. Rhinovirus positive. On antibiotic coverage for bilateral pneumonia. Continue aspiration precautions/ST eval today. Rate controlled on Cardizem drip. Transition to oral Cardizem. Continue steroids/bronchodilators/pulmonary toileting and nutrition support. 2/4-patient doing well. White count 16.9, feeling a lot better. Transition to oral steroid today. Continue antibiotic. at bedside. Sodium improved 132. Blood sugars at goal. Feeling a lot better. Ambulating and tolerating diet. Down to 2 L oxygen. Constitutional Vitals: Vital Signs Temp Pulse Resp BP Pulse Ox 98.4 F 84 19 123/75 100 06/29/20 12:01 06/29/20 12:09 06/29/20 12:09 06/29/20 12:01 06/29/20 12:09 Period Temp Pulse Resp BP Sys/Richardson Pulse Ox Last 24 Hr 97.4 F-98.5 F 66-126 13-34 113-147/65-88 90-100 Intake and Output 06/29/20 06/29/20 06/29/20 05:59 13:59 21:59 Intake Total 50 1050 Output Total 900 450 Balance -850 600 Alert oriented No labored breathing On clears oxygen No lymphedema No anxiety Intake & Output: Intake & Output 06/29/20 06/29/20 06/29/20 05:59 13:59 21:59 Intake Total 50 1050 Output Total 900 450 Balance -850 600 Intake: IV 50 1050 Sodium Chloride 0.9% 1,000 ml @ 1000 50 mls/hr IV .Q20H [facility] Rx#: [id number] Zosyn 3.375 gm In Dextrose 5% 50 50 in Water 50 ml @ 100 mls/hr IV Q6H [facility] Rx#:[id number] Output: Void Amount 900 450 Other: Urine Appearance Clear Clear Urine Color Bright Yellow Bright Yellow Stool Size Large Stool Color Brown Stool Consistency Soft OBJ DATA Labs CBC & Chem 7: 06/29/20 05:34 06/29/20 05:34 Labs: Abnormal Lab Results 06/29/20 06/29/20 06/28/20 05:34 05:34 04:56 WBC 16.9 H RBC 3.94 L Hgb 11.9 L Hct 35.6 L Neut % (Auto) 93.3 H Lymph % (Auto) 3.2 L Lymph # (Auto) 0.54 L Absolute Neutrophils 15.77 H VBG Lactic Acid Sodium 132 L 128 L Chloride 95 L 90 L Glucose 148 H 128 H Ferritin 526.7 H C-Reactive Protein 19.20 H Albumin 2.9 L 2.8 L Albumin/Globulin Ratio 0.9 L Procalcitonin 06/28/20 06/27/20 06/27/20 04:56 13:15 12:20 WBC RBC 4.12 L Hgb 12.4 L Hct 35.9 L Neut % (Auto) 93.5 H Lymph % (Auto) 4.0 L Lymph # (Auto) 0.41 L Absolute Neutrophils 9.51 H VBG Lactic Acid 2.1 H Sodium Chloride Glucose Ferritin C-Reactive Protein Albumin Albumin/Globulin Ratio Procalcitonin 0.42 H Meds: Medications Acetaminophen (Tylenol) 650 mg PO Q4-6HP PRN; Protocol PRN Reason: Per Pain Protocol/Fever > 101 Albuterol/Ipratropium (Duoneb) 3 ml NEB Q4HP PRN PRN Reason: Shortness Of Breath Bisacodyl (Dulcolax) 10 mg AR Q2-3DAYS PRN PRN Reason: Constipation Budesonide (Pulmicort) 0.5 mg NEB Q12 [facility] Diltiazem HCl (Cardizem Cd) 180 mg PO DAILY [facility] Docusate Sodium (Colace) 100 mg PO BID [facility] Guaifenesin (Mucinex) 600 mg PO BIDP PRN PRN Reason: Congestion Sodium Chloride (Sodium Chloride 0.9%) 1,000 mls @ 50 mls/hr IV .Q20H [facility] Stop: 07/02/20 00:48 Acetaminophen (Ofirmev) 650 mg in 65 mls @ 130 mls/hr IV Q6HP PRN; Protocol PRN Reason: Per Pain Protocol/Fever > 101 Magnesium Sulfate (Magnesium Sulfate) 2 gm in 50 mls @ 50 mls/hr IV UD PRN PRN Reason: MG = or < 1.7 Piperacillin Sod/Tazobactam (Sod 3.375 gm/ Dextrose) 50 mls @ 100 mls/hr IV Q6H [facility]; Protocol Diltiazem HCl 125 mg/ Sodium (Chloride) 125 mls @ 5 mls/hr IV Q12HP PRN; Protocol PRN Reason: TITRATE TO KEEP HR<100,SBP>90 Potassium Chloride 40 meq/ (Dextrose) 520 mls @ 130 mls/hr IV UD PRN PRN Reason: K+ = or < 3.5 Iron Carb/Multivit/[place]/Folic Acid (Multivitamin W/Minerals) 1 tab PO DAILY [facility] Melatonin (Melatonin 3mg Tablet) 3 mg PO HSP PRN PRN Reason: Insomnia Methylprednisolone Sodium Succinate (Solu-Medrol) 60 mg IV Q12 [facility] Metoprolol Tartrate (Lopressor) 5 mg IV Q5M PRN PRN Reason: Heart Rate > 140 bpm Ondansetron HCl (Zofran Odt) 4 mg SL Q4-6HP PRN; Protocol PRN Reason: Nausea And Vomiting Ondansetron HCl (Zofran) 4 mg IV Q4-6HP PRN; Protocol PRN Reason: Nausea And Vomiting Budesonide- Formoterol [ Symbicort] 160-4.5 Mcg/Act Inhaler 1 dose INH BID [facility] Polyethylene Glycol (Miralax) 17 gm PO DAILYP PRN PRN Reason: Constipation Potassium Chloride (Klor-Con) 40 meq PO DAILYP PRN PRN Reason: K+ < 3.5 Rivaroxaban (Xarelto) 20 mg PO QPMCC [facility] Senna/Docusate Sodium (Senna Plus Tablet) 1 tab PO HS [facility] Sodium Chloride (Saline Flush) 10 ml IV Q8 [facility] Tiotropium [place] (Spiriva) 36 mcg INH DAILY [facility] A/P Narrative A/P Narrative: * Acute hypoxic respiratory failure-secondary to COPD exacerbation/bilateral pneumonia. Clinically improving now down to 2 L oxygen. * Bilateral pneumonia-clinical improvement noted on broad-continue broad- spectrum antibiotic coverage. Rhinovirus positive. Sputum cultures negative. * Severe sepsis-clinically resolved and management per guidelines * Acute exacerbation of COPD continue bronchodilators. Transition to oral steroids * A. fib RVR-off Cardizem drip. Continue oral Cardizem * Euvolemic hyponatremia sodium improved from improved from 126->132. * History of hypertension. Systolics at goal * Anticoagulation for CVA prophylaxis on rivaroxaban * Full code Plan * Continue PT OT/RT treatments * Continue pulmonary toilet/bronchodilators/steroids/antibiotics/ST eval * Transition to oral steroids * PT OT nutrition support * Discharge planning per case management likely in 24 hours Time Spent With Patient Time: Total time spent is greater than 50% in coordination of care (as documented) at patient's floor/unit and/or counseling patient: QUALITY VTE Deep Vein Thrombosis/Pulmonary Embolism Present on Admission: No
[2020-06-29] MEDS ORDERED: RIVAROXABAN 20 MG TABLET PO SCH (17:30)
[2020-06-29] MEDS ORDERED: SENNOSIDES/DOCUSATE SODIUM 1 TAB TABLET PO SCH (21:00)
[2020-06-30] MEDS: PIPERACILLIN SODIUM/TAZOBACTAM 3.375 GM in DEXTROSE 5% IN WATER 50 ML IV SCH ×2 (05:46→11:04)
[2020-06-30] MEDS: 0.9 % SODIUM CHLORIDE 10 ML SYRINGE IV SCH (05:47)
[2020-06-30 06:45] LABS: Basophils # (Auto) 0.05 K/mcL (0.00-0.20); Basophils % (Auto) 0.3 % (0.0-2.0); Eosinophils # (Auto) 0 K/mcL (0.00-0.70); Eosinophils % (Auto) 0 % (0.0-7.0); Hematocrit 36.9 % (41.0-55.0); Hemoglobin 12.6 g/dL (13.5-16.5); Lymphocytes # (Auto) 0.61 K/mcL (1.50-4.80); Lymphocytes % (Auto) 3.6 % (15.0-49.0); Mean Cell Volume 88.1 fL (80.0-100.0); Mean Corpuscular HGB Conc 34.1 g/dL (31.0-36.0); Mean Platelet Volume 8.8 fL (7.4-10.4); Monocytes # (Auto) 0.56 K/mcL (0.10-0.90); Monocytes % (Auto) 3.3 % (1.0-12.0); Neutrophils % (Auto) 92.8 % (38.0-78.0); Platelet Count 395 K/mcL (140-440); RBC 4.19 M/mcL (4.50-5.90); Red Cell Distribution Width 12.8 % (11.5-14.5); WBC 16.9 K/mcL (4.5-11.0)
[2020-06-30 07:00] LABS: ALT/SGPT 38 U/L (<40); AST/SGOT 35 U/L (<40); Alkaline Phosphatase 61 U/L (39-117); Bilirubin,Direct < 0.2 mg/dL (<0.3); Bilirubin,Total 0.2 mg/dL (0.1-1.0); Blood Urea Nitrogen 23 mg/dL (8-23); Calcium 8.7 mg/dL (8.6-10.4); Carbon Dioxide 31 mmol/L (22-30); Chloride 98 mmol/L (96-108); Globulin 2.9 gm/dL (2.2-3.7); Glomerular Filtration Rate 78; Glucose 136 mg/dL (70-105); Lactate Dehydrogenase 199 U/L (135-225); Phosphorous 3.3 mg/dL (2.5-4.5); Triglycerides 66 mg/dL (<150)
[2020-06-30] MEDS: BUDESONIDE 0.5 MG/2 ML AMPUL.NEB NEB SCH (08:20)
[2020-06-30] MEDS: methylPREDNISolone SOD SUCC 125 MG/2 ML VIAL IV SCH (08:25)
[2020-06-30] MEDS: BUDESONIDE FORMOTEROL INH SCH (08:26)
[2020-06-30] MEDS: DOCUSATE SODIUM 100 MG CAPSULE PO SCH (08:27)
[2020-06-30] MEDS: 0.9 % SODIUM CHLORIDE 1,000 ML IV SCH (08:34)
[2020-06-30] MEDS ORDERED: TIOTROPIUM BROMIDE 18 MCG INHALANT INH SCH (09:00)
[2020-06-30] MEDS ORDERED: MULTIVIT,THER IRON,CA,FA & MIN 1 TABLET PO SCH (09:00)
[2020-06-30] MEDS ORDERED: DILTIAZEM 180 MG CAP.XL.24H PO SCH (09:00)
[2020-06-30] MEDS: IPRATROPIUM/ALBUTEROL 3 ML AMPUL.NEB NEB PRN (09:46)
--- NOTE | 2020-06-30 10:52 | Discharge Summary ---
Discharge Provider Provider Patient information: Note initiated : 06/30/20 at 10:49 am Service Date, if different from initiated Date: [] Patient: Christoph Neff a 85 y/o M admitted on 06/27/20 for SOB, Hx Of COPD. Discharge diagnosis Acute hypoxic respiratory failure-secondary to COPD exacerbation/bilateral pneumonia. Clinically resolved with aggressive management on antibiotic/bronchodilators and steroids. Now at baseline home oxygen 2 L. Bilateral pneumonia-clinical improvement noted on broad antibiotics- Rhinovirus positive. Continue additional 5 days oral Augmentin Severe sepsis-clinically resolved and management per guidelines Acute exacerbation of COPD continue bronchodilators. Continue oral prednisone for additional 5 days A. fib RVR-off Cardizem drip. Rate controlled on oral Cardizem Euvolemic hyponatremia sodium improved from improved from 126->135. History of hypertension. Stable Anticoagulation for CVA prophylaxis on rivaroxaban Brief hospital course Mr. Neff is a 85 year old M with history of O2 dependent COPD/HTN/A. fib/anticoagulation who presents to the ER with worsening shortness of breath for the last 2 weeks. Symptoms accompanied with increasing yellow productive sputum, fatigue, weakness, inability to function. Over the last couple of days he has had profound loss of appetite/fatigue myalgia and low-grade fever. Patient has not been able to perform ADLs. He went to the urgent care with above symptoms. Initial work-up was consistent with bilateral pneumonia/elevated white count at 16, elevated lactate at 2.6, A. fib RVR, sodium 126. Rapid Covid negative. Covid PCR pending. Hospitalist service was consulted after patient was started on metoprolol for rate control. At the time of evaluation patient is unable to talk in full sentences. He is anxious/restless. Is currently on 3 L oxygen. He endorses to history as above. Lives with his Jade. Denies recent exposure to sick contacts including Covid symptoms. Endorses to myalgia, but no dysuria: Bloody stool, diarrhea, joint pain or rash 2/3-patient doing a lot better. Currently on 3 days oxygen. Overnight on CPAP. Able to talk in full sentences. Covid negative. Rhinovirus positive. On antibiotic coverage for bilateral pneumonia. Continue aspiration precautions/ST eval today. Rate controlled on Cardizem drip. Transition to oral Cardizem. Continue steroids/bronchodilators/pulmonary toileting and nutrition support. 2/4-patient doing well. White count 16.9, feeling a lot better. Transition to oral steroid today. Continue antibiotic. at bedside. Sodium improved 132. Blood sugars at goal. Feeling a lot better. Ambulating and tolerating diet. Down to 2 L oxygen. 06/30-patient doing well. Sitting on chair on 2 L oxygen. Tracy at bedside. Discussed treatment and discharge plan with additional 5 days oral antibiotic/steroid. Continue follow-up primary care physician. Date of admission: 06/27/20 15:25 Discharge date: 06/30/20 Primary care physician: Garth Pederson DO Consults: 06/27/20 14:21 Consult to Physician [CONS] Stat Comment: Consulting Provider: Vlad Caldwell Reason For Exam: Physician to Consult Discharge Meds Discharge Medications Home Medications budesonide-formoterol HFA 160 mcg-4.5 mcg/actuation aerosol inhaler 2 puff INHALATION BID 05/20/17 [History Confirmed 06/27/20 Last Taken 06/26/20 08:00] ipratropium 0.5 mg-albuterol 3 mg (2.5 mg base)/3 mL nebulization soln 4 - 5 ml INHALATION DAILY 05/20/17 [History Confirmed 06/27/20 Last Taken Unknown] tiotropium bromide 2.5 mcg/actuation mist for inhalation 2 puff INHALATION QDAY 05/20/17 [History Confirmed 06/27/20 Last Taken 06/26/20 08:00] Portable Oxygen Concentrator #1 ea 04/20/18 [Rx Confirmed 06/27/20 Last Taken Unknown] Portable Nebulizer #1 ea 02/16/19 [Rx Confirmed 06/27/20 Last Taken Unknown] diltiazem HCl 180 mg capsule,24 hr,extended release 180 mg PO QDAY #90 cap 07/19/19 [Rx Confirmed 06/27/20 Last Taken 06/26/20 08:00] rivaroxaban 20 mg tablet 20 mg PO QDAY #90 tab 03/09/20 [Rx Confirmed 06/27/20 Last Taken 06/26/20 08:00] lisinopril 20 mg-hydrochlorothiazide 25 mg tablet 1 tab PO QDAY #90 tab 03/29/20 [Rx Confirmed 06/27/20 Last Taken 06/26/20 08:00] amoxicillin-pot clavulanate 1 tab PO BID #10 tab 06/30/20 [Rx Last Taken Unknown] prednisone 40 mg PO QDAY #10 tab 06/30/20 [Rx Last Taken Unknown] COURSE Hospital Course Hospital course: . Discharge diagnosis: COPD exacerbation, bilateral pneumonia Time Spent with Patient Time attestation: Total time spent providing and/or coordinating discharge services: EXAM Constitutional Vitals: Temp Pulse Resp BP Pulse Ox 97.3 F 75 18 154/81 94 06/30/20 07:21 06/30/20 07:21 06/30/20 07:21 06/30/20 07:21 06/30/20 07:21 Discharge Data Data Completed and Pending Labs on day of discharge: Labs from last 24 hours 06/30/20 06/30/20 05:35 05:35 WBC 16.9 H RBC 4.19 L Hgb 12.6 L Hct 36.9 L MCV 88.1 MCH 30.1 MCHC 34.1 RDW 12.8 Plt Count 395 MPV 8.8 Neut % (Auto) 92.8 H Lymph % (Auto) 3.6 L [place] % (Auto) 3.3 Eos % (Auto) 0 Baso % (Auto) 0.3 Lymph # (Auto) 0.61 L [place] # (Auto) 0.56 Eos # (Auto) 0 Baso # (Auto) 0.05 Absolute Neutrophils 15.65 H Sodium 135 Potassium 3.8 Chloride 98 Carbon Dioxide 31 H Anion Gap 6.0 L BUN 23 Creatinine 0.9 GFR Calculation 78 Glucose 136 H Uric Acid 3.0 Calcium 8.7 Phosphorus 3.3 Magnesium 2.2 Total Bilirubin 0.2 Direct Bilirubin < 0.2 GGT 20 AST 35 ALT 38 Alkaline Phosphatase 61 Lactate Dehydrogenase 199 Total Protein 5.9 Albumin 3.0 L Globulin 2.9 Albumin/Globulin Ratio 1.0 Triglycerides 66 Preliminary micro results at discharge 06/27/20 13:20 Blood Culture - Preliminary Blood 06/27/20 13:15 Blood Culture - Preliminary Blood 06/27/20 13:39 Gram Stain - Preliminary Sputum - Expectorated Sputum Culture - Preliminary Discharge Plan Patient/Caregiver Discharge Instructions Activity: increase activity as tolerated and wear oxygen at all times Activity Restrictions/Additional Instructions: Follow-up PCP in 5 to 7 days Continue oral Augmentin for 5 days Oral prednisone for 5 days Pre-existing medical condition management home medications to continue as prior Return to ER if worsening fever chills shortness of breath noted Prescriptions: New prednisone 20 mg tablet 40 mg PO QDAY Qty: 10 RF: 0 amoxicillin-pot clavulanate 875-125 mg Tablet 1 tab PO BID Qty: 10 RF: 0 Continued (DME) Portable Oxygen Concentrator Qty: 1 RF: 0 (DME) Portable Nebulizer Qty: 1 RF: 0 diltiazem HCl 180 mg capsule,extended release 24 hr 180 mg PO QDAY Qty: 90 RF: 3 Xarelto 20 mg tablet 20 mg PO QDAY Qty: 90 RF: 3 lisinopril-hydrochlorothiazide 20-25 mg tablet 1 tab PO QDAY Qty: 90 RF: 1 budesonide-formoterol [Symbicort] 160-4.5 mcg/actuation HFA aerosol inhaler 2 puff INHALATION BID RF: 0 tiotropium bromide [Spiriva Respimat] 2.5 mcg/actuation mist 2 puff INHALATION QDAY RF: 0 ipratropium-albuterol 0.5 mg-3 mg(2.5 mg base)/3 mL solution for nebulization 4 - 5 ml INHALATION DAILY RF: 0 Follow Up Plan Follow up with: Garth Pederson DO [Primary Care Provider] - Patient Disposition: Home, Self-Care Prognosis: Serious Rehab Potential: Fair I certify that the patient requires SNF services: No Overall status at discharge: patient is progressing back to baseline Discharge Orders: Discharge Order (Routine); Ordered 06/30/20 Ordered By: Vlad GRAHAM VTE Deep Vein Thrombosis/Pulmonary Embolism Present on Admission: No
== END 2020-06-30 14:00 | disposition home or self-care (01) | DRG 871 ==
LOC: ED 12:59 → ICU 15:25 → MEDSUR 06-29 13:08
PROVIDERS: ADMIT Internal Medicine; ATTEND Internal Medicine

== ENCOUNTER 2022-10-21 18:07 | Inpatient (IN) ==
[2022-10-21] MEDS ORDERED: methylPREDNISolone SOD SUCC 125 MG/2 ML VIAL IV ONE (18:25)
[2022-10-21] MEDS ORDERED: IPRATROPIUM/ALBUTEROL 3 ML AMPUL.NEB NEB ONE ×3 (18:25→23:30)
[2022-10-21] MEDS ORDERED: 0.9 % SODIUM CHLORIDE 500 ML IV ONE ×2 (18:25→21:24)
--- NOTE | 2022-10-21 18:32 | Emergency Department Note ---
SOB HPI General Chief Complaint: Shortness of Breath/Dyspnea Stated Complaint: SOB Time Seen by Provider: 10/21/22 18:16 Source: patient Mode of arrival: wheelchair Limitations: no limitations History of Present Illness HPI Narrative: Narrative: This is a 87-year-old male present emergency department with complaints of shortness of breath. He has a history of A-fib with RVR on Xarelto lisinopril diltiazem. He also has a history of a COPD which he uses inhaled corticosteroids and DuoNeb. He reports that he has been having increased shortness of breath over the last 4 days. He usually is able to use an oxygen concentrator at 4 to 5 L and leave it and walk around a little bit in the house but over the last 4 days he has had to be on it constantly at 5 L and is still short of breath. He reports that 2 days ago he started having bilateral shoulder pain and neck pain. Thank he is using accessory muscles. He denies chest pain. He has no history of DVT or PE and has not had any recent surgeries procedures or prolonged time of immobilization. No history of [place]. They have noticed a little bit of a worsening edema in his lower extremities that is new over the last couple days. He does have a chronic cough but reports that it is worse recently. He states that he feels like he has a phlegm ball in his throat but cannot cough it up. No fevers or headaches or chills abdominal pain nausea vomiting diarrhea dysuria urinary frequency or urgency. Related Data Home Medications Medication Instructions Recorded Confirmed budesonide-formoterol HFA 160 2 puff inhalation BID 05/20/17 10/21/22 mcg-4.5 mcg/actuation aerosol inhaler (Symbicort) ipratropium 0.5 mg-albuterol 3 mg 3 ml inhalation DAILY 05/20/17 10/21/22 (2.5 mg base)/3 mL nebulization soln tiotropium bromide 1.25 1 puff inhalation BID 08/12/22 10/21/22 mcg/actuation mist for inhalation (Spiriva Respimat) Previous Rx's Medication Instructions Recorded Portable Oxygen Concentrator #1 ea 04/20/18 Portable Nebulizer #1 ea 02/16/19 diltiazem HCl 180 mg capsule,24 180 mg PO QDAY #90 caps 06/28/22 hr,extended release lisinopril 20 1 tab PO QDAY #90 tabs 09/30/22 mg-hydrochlorothiazide 25 mg tablet rivaroxaban 20 mg tablet (Xarelto) 20 mg PO QDAY #90 tabs 09/30/22 Allergies Allergy/AdvReac Type Severity Reaction Status Date / Time No Known Drug Allergies Allergy Verified 10/21/22 18:11 Review of Systems ROS ROS Narrative: Narrative: All systems ED: reviewed and negative except as stated. [facility] Narrative Patient History Narrative: Narrative: Medical/Surgical/Family History All Active Problems (Updated 10/21/22 @ 21:29 by Jos Chapa PA-C) Dyspnea (Chronic) Community acquired pneumonia (Chronic) Atrial fibrillation with RVR (Chronic) Emphysema of lung (Chronic) COPD (chronic obstructive pulmonary disease) (Chronic) Atrial fibrillation (Chronic) Hypertension, essential (Chronic) Rheumatic fever (Chronic) Bowel disease (Chronic) Pneumonia (Chronic ~08/2017) Contracture of palmar fascia (Chronic) Impaired fasting glucose (Chronic) Melanoma of skin (Chronic) Postnasal drip (Chronic) Rhinitis, allergic (Chronic) Urinary frequency (Chronic) History of tobacco use (Chronic) Peripheral edema (Chronic) 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) Left ventricular hypertrophy (Chronic) Mild aortic sclerosis (Chronic) Tricuspid regurgitation (Chronic) Mitral regurgitation (Chronic) Obstructive sleep apnea (Chronic) Primary generalized hypertrophic osteoarthrosis (Chronic) Malignant melanoma (Chronic) care home (current) use of anticoagulants (Chronic) Tobacco use (Chronic) Seborrheic keratosis (Chronic) Actinic keratosis (Chronic) Other benign neoplasm of skin of trunk (Chronic) Osteoarthritis (Chronic) Sleep-related hypoventilation (Chronic) Major depressive disorder (Chronic) Foreign body in right upper extremity (Acute) 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) Lentigines (Chronic) Hemangioma (Chronic) Actinic keratoses (Chronic) Chronic hypoxemic respiratory failure (Chronic) Medicare annual wellness visit, subsequent (Acute) SOB (shortness of breath) (Acute) Pneumonia (Acute) A-fib (Acute) Sepsis (Acute) History of COPD (Acute) Hyponatremia (Acute) Pigmented skin lesion suspicious for malignant neoplasm (Acute) Skin ulcer (Acute) Atrial fibrillation with rapid ventricular response (Acute) Elevated PSA, between 10 and less than 20 ng/ml (Chronic) COPD with acute exacerbation (Acute) Sepsis (Acute) Pneumonia (Acute) Atrial fibrillation with rapid ventricular response (Acute) Medical History Actinic keratoses Actinic keratosis Atrial fibrillation Benign hypertensive heart disease without heart failure Bowel disease Chronic hypoxemic respiratory failure Contracture of palmar fascia COPD (chronic obstructive pulmonary disease) Elevated PSA, between 10 and less than 20 ng/ml Emphysema of lung Hemangioma History of tobacco use Hypertension, essential Impaired fasting glucose Left ventricular hypertrophy Lentigines care home (current) use of anticoagulants Malignant melanoma R arm Medicare annual wellness visit, subsequent Melanoma of skin Mild aortic sclerosis Mitral regurgitation Neoplasm of uncertain behavior of skin Obstructive sleep apnea Osteoarthritis Other benign neoplasm of skin of trunk Peripheral edema Pneumonia (~08/2017) In hospital 08/29/2017-09/01/2017 with pneumonia Postnasal drip Primary generalized hypertrophic osteoarthrosis Rheumatic fever x2 Rhinitis, allergic Seborrheic keratosis Sleep-related hypoventilation Solar elastosis Tobacco use former smoker Tricuspid regurgitation Urinary frequency Surgical History H/O colonoscopy 2013 H/O hand surgery 2016 History of herniorrhaphy 2001 History of melanoma excision right arm skin cancer Hx of appendectomy 2011 Family History Father Cancer Mother , at 93 Dementia TIA (transient ischemic attack) Sister Diabetes Brother Stroke Other Lung cancer Social History Smoking Status: Former smoker Alcohol Intake Frequency: former alcohol drinker Substance Use: does not use Exam Narrative Narrative: Narrative: General: Alert, mild to moderate distress Head: No trauma normocephalic Eyes: PERRLA, EOMs intact Neck: Full range of motion, no midline tenderness Cardiovascular: Tachycardia irregularly irregular Respiratory: Poor aeration. Tachypnea mild to moderate respiratory distress w ith accessory muscle use, mild bilateral basilar Rales no rhonchi or wheezes Abdomen pelvis: Abdomen is soft and nontender to palpation. There is no guarding no rebound tenderness. Negative Grissom sign. No tenderness over McBurney's point. Neuro: Patient is alert and oriented x3 Psych: Normal affect, normal mood Skin: Warm, no rash, normal color Extremity: +1 pitting edema negative Homans' sign bilaterally. Dorsalis pedis +2 bilaterally. General Limitations: no limitations Course Vital Signs Vital signs: Vital Signs Temperature 98.0 F 10/21/22 18:07 Pulse Rate 105 H 10/21/22 18:07 Respiratory Rate 20 10/21/22 18:07 Blood Pressure 123/75 10/21/22 18:07 Pulse Oximetry (%) 87 L 10/21/22 18:07 Oxygen Delivery Method Nasal Cannula 10/21/22 18:07 Oxygen Flow Rate (L/min) 5 10/21/22 18:07 Temperature 98.0 F 10/21/22 18:07 Pulse Rate 120 H 10/21/22 20:46 Respiratory Rate 22 10/21/22 20:46 Blood Pressure 104/82 10/21/22 20:46 Pulse Oximetry (%) 94 10/21/22 20:46 Oxygen Delivery Method Nasal Cannula 10/21/22 20:46 Oxygen Flow Rate (L/min) 3 10/21/22 20:46 MDM MDM Narrative Medical decision making narrative: Narrative: Differential diagnosis: A-fib with RVR, COPD exacerbation, CHF, influenza, COVID, acute coronary syndrome, pneumonia, sepsis Independent lab ordered and reviewed by me: CBC white count of 14,000 with left shift CMP reviewed unremarkable [id number] troponin negative proBNP 889 ECG shows atrial fibrillation Portable chest x-ray infiltrate in left lower lobe consistent with pneumonia on my read confirmed by radiology Verenice negative for influenza and COVID Lactic acid is at 1.5 Procalcitonin 23 9 Medications ordered: Solu-Medrol 125 IV DuoNeb-after DuoNeb and steroids the patient was looking much better his work of breathing dramatically improved and he was not using accessory muscles on repeat lung exam and his air movement was much better I could hear Rales in left lower lobe. 500 normal saline 1 g IV Rocephin and 500 mg oral azithromycin for pneumonia Tests considered but not ordered: I did consider getting a D-dimer but with no history of DVT or PE no lower extremity signs of DVT and already on Xarelto I felt that the cause of his shortness of breath was unlikely to be due to PE. Prescriptions given or considered: Discussed with other physicians/providers: Disposition decision making I do think that the patient's bilateral shoulder pain and neck pain are due from accessory muscle use and not from any skeletal pain since he has not had any falls and he is using a lot of his neck muscles and his shoulders are moving up and down quite a bit too. After breathing treatment the patient's oxygen that and work of breathing is improved he is down to 3 L nasal cannula where his baseline is usually 4-5 with no accessory muscle use after the first breathing treatment SIRS, Sepsis, and Septic Shock Criteria from [email or web address] on 10/21/2022 All calculations should be rechecked by clinician prior to use RESULT SUMMARY: This patient meets sepsis criteria. Follow your guidelines for sepsis, which typically include aggressive fluid resuscitation, early, broad-spectrum ant ibiotics, ICU consultation, CVP evaluation, and occasionally pressors and transfusion. INPUTS: Temp >38&deg;C (100.4&deg;F) or <36&deg;C (96.8&deg;F) > 0 = No Heart rate >90 > 1 = Yes Respiratory rate >20 or Simran? <32 mm Hg > 0 = No WBC >12,000/mm&sup3;, <4,000/mm&sup3;, or >10% bands > 1 = Yes Suspected or present source of infection > 1 = Yes Lactic acidosis, SBP <90 or SBP drop &ge;40 mm Hg of normal > 0 = No Severe sepsis with hypotension, despite adequate fluid resuscitation > 0 = No Evidence of &ge;2 organs failing > 0 = No Patient has had quite a bit of improvement in his respiratory distress after the 2 DuoNebs and the Solu-Medrol. The patient does have a pneumonia and meets sepsis criteria with white blood cell count tachycardia and source of infection of pneumonia. I have the gotten blood cultures and given IV Rocephin and oral azithromycin along with now 1 full liter of normal saline. Since he is not in severe sepsis I did not do full fluid sepsis orders. At first I was concerned for fluid overloaded that is why I only ordered initially 1/2 L. At 2115 the patient's blood pressure was 95/57 although his pulse also improved to 81 I ordered another half liter at that point. With the patient in A-fib and elevation in his heart rate he did meet criteria for A-fib with RVR as well as a sepsis and pneumonia. I spoke with Dr. Cheek who agreed admit the patient for further evaluation and treatment Sepsis Sepsis Identified: Yes Date Sepsis Identified: 10/21/22 Time Sepsis Identified: 20:00 Comments: with pneumonia, tachycardia and WBC count Lab Data 10/21/22 18:33 10/21/22 18:33 Labs: Lab Results 10/21/22 10/21/22 10/21/22 Range/Units 18:28 18:28 18:30 WBC (4.5-11.0) K/mcL RBC (4.63-6.08) M/mcL Hgb (13.7-17.5) g/dL Hct (40.1-51.0) % POC Hct 44.0 (41-55) MCV (80.0-100.0) fL MCH (26.0-34.0) pg MCHC (31.0-36.0) g/dL RDW (11.5-14.5) % Plt Count (140-440) K/mcL MPV (8.8-12.5) fL Immature Gran % (Auto) (0.0-0.5) % Neut % (Auto) (38.0-78.0) % Lymph % (Auto) (15.5-49.0) % [place] % (Auto) (1.0-12.0) % Eos % (Auto) (0.0-7.0) % Baso % (Auto) (0.0-2.0) % Lymph # (Auto) (1.50-4.80) K/mcL [place] # (Auto) (0.10-0.90) K/mcL Eos # (Auto) (0.00-0.70) K/mcL Baso # (Auto) (0.00-0.30) K/mcL Immature Gran # (0.00-0.05) K/mcl Absolute Neutrophils (1.80-8.00) K/mcL POC VBG pH 7.36 (7.32-7.42) POC VBG pCO2 at Temp 54.7 H (41-51) POC VBG pO2 26 (25-40) POC VBG HCO3 30.7 H (24-28) POC VBG Total CO2 32.0 H (25-29) POC Venous O2 Sat 45.0 (40-70) POC VBG Base Excess 5.0 H* (-2-2) VBG Lactic Acid 1.5 (0.5-2) POC Sodium 133 (133-145) Sodium (133-145) mmol/L POC Potassium 4.5 (3.3-5.1) Potassium (3.3-5.1) mmol/L POC Chloride 95 L (96-108) Chloride (96-108) mmol/L Carbon Dioxide (22-30) mmol/L POC Total CO2 30.0 (22-30) Anion Gap (8.0-16.0) POC BUN 36 H (6-20) BUN (8-23) mg/dL Creatinine (0.7-1.2) mg/dL POC Creatinine 1.2 (0.6-1.2) GFR Calculation Glucose (70-105) mg/dL POC Glucose 109 H (70-105) Calcium (8.6-10.4) mg/dL POC WB Ioniz Calcium 1.15 L (1.16-1.32) Total Bilirubin (0.1-1.0) mg/dL Direct Bilirubin (<0.3) mg/dL AST (<40) U/L ALT (<40) U/L Alkaline Phosphatase (39-117) U/L NT-Pro-B Natriuret Pep (<450.0) pg/mL Total Protein (5.9-8.4) gm/dL Albumin (3.2-5.2) gm/dL Globulin (2.2-3.7) gm/dL Albumin/Globulin Ratio (1.0-2.3) Procalcitonin (<0.10) ng/mL POC Troponin I < 0.02 (0.00-0.08) 10/21/22 10/21/22 10/21/22 Range/Units 18:33 18:33 18:33 WBC 14.2 H (4.5-11.0) K/mcL RBC 4.59 L (4.63-6.08) M/mcL Hgb 13.6 L (13.7-17.5) g/dL Hct 40.4 (40.1-51.0) % POC Hct (41-55) MCV 88.0 (80.0-100.0) fL MCH 29.6 (26.0-34.0) pg MCHC 33.7 (31.0-36.0) g/dL RDW 14.4 (11.5-14.5) % Plt Count 335 (140-440) K/mcL MPV 10.1 (8.8-12.5) fL Immature Gran % (Auto) 0.4 (0.0-0.5) % Neut % (Auto) 79.3 H (38.0-78.0) % Lymph % (Auto) 6.8 L (15.5-49.0) % [place] % (Auto) 12.5 H (1.0-12.0) % Eos % (Auto) 0.8 (0.0-7.0) % Baso % (Auto) 0.2 (0.0-2.0) % Lymph # (Auto) 0.97 L (1.50-4.80) K/mcL [place] # (Auto) 1.77 H (0.10-0.90) K/mcL Eos # (Auto) 0.11 (0.00-0.70) K/mcL Baso # (Auto) 0.03 (0.00-0.30) K/mcL Immature Gran # 0.05 (0.00-0.05) K/mcl Absolute Neutrophils 11.26 H (1.80-8.00) K/mcL POC VBG pH (7.32-7.42) POC VBG pCO2 at Temp (41-51) POC VBG pO2 (25-40) POC VBG HCO3 (24-28) POC VBG Total CO2 (25-29) POC Venous O2 Sat (40-70) POC VBG Base Excess (-2-2) VBG Lactic Acid (0.5-2) POC Sodium (133-145) Sodium 134 (133-145) mmol/L POC Potassium (3.3-5.1) Potassium 4.5 (3.3-5.1) mmol/L POC Chloride (96-108) Chloride 95 L (96-108) mmol/L Carbon Dioxide 28 (22-30) mmol/L POC Total CO2 (22-30) Anion Gap 11.0 (8.0-16.0) POC BUN (6-20) BUN 35 H (8-23) mg/dL Creatinine 1.0 (0.7-1.2) mg/dL POC Creatinine (0.6-1.2) GFR Calculation 67 Glucose 102 (70-105) mg/dL POC Glucose (70-105) Calcium 9.2 (8.6-10.4) mg/dL POC WB Ioniz Calcium (1.16-1.32) Total Bilirubin 0.6 (0.1-1.0) mg/dL Direct Bilirubin (<0.3) mg/dL AST 28 (<40) U/L ALT 20 (<40) U/L Alkaline Phosphatase 86 (39-117) U/L NT-Pro-B Natriuret Pep 889.6 H (<450.0) pg/mL Total Protein 6.6 (5.9-8.4) gm/dL Albumin 3.4 (3.2-5.2) gm/dL Globulin 3.2 (2.2-3.7) gm/dL Albumin/Globulin Ratio 1.1 (1.0-2.3) Procalcitonin 0.39 H (<0.10) ng/mL POC Troponin I (0.00-0.08) 10/21/22 Range/Units 18:38 WBC (4.5-11.0) K/mcL RBC (4.63-6.08) M/mcL Hgb (13.7-17.5) g/dL Hct (40.1-51.0) % POC Hct (41-55) MCV (80.0-100.0) fL MCH (26.0-34.0) pg MCHC (31.0-36.0) g/dL RDW (11.5-14.5) % Plt Count (140-440) K/mcL MPV (8.8-12.5) fL Immature Gran % (Auto) (0.0-0.5) % Neut % (Auto) (38.0-78.0) % Lymph % (Auto) (15.5-49.0) % [place] % (Auto) (1.0-12.0) % Eos % (Auto) (0.0-7.0) % Baso % (Auto) (0.0-2.0) % Lymph # (Auto) (1.50-4.80) K/mcL [place] # (Auto) (0.10-0.90) K/mcL Eos # (Auto) (0.00-0.70) K/mcL Baso # (Auto) (0.00-0.30) K/mcL Immature Gran # (0.00-0.05) K/mcl Absolute Neutrophils (1.80-8.00) K/mcL POC VBG pH (7.32-7.42) POC VBG pCO2 at Temp (41-51) POC VBG pO2 (25-40) POC VBG HCO3 (24-28) POC VBG Total CO2 (25-29) POC Venous O2 Sat (40-70) POC VBG Base Excess (-2-2) VBG Lactic Acid (0.5-2) POC Sodium (133-145) Sodium (133-145) mmol/L POC Potassium (3.3-5.1) Potassium (3.3-5.1) mmol/L POC Chloride (96-108) Chloride (96-108) mmol/L Carbon Dioxide (22-30) mmol/L POC Total CO2 (22-30) Anion Gap (8.0-16.0) POC BUN (6-20) BUN (8-23) mg/dL Creatinine (0.7-1.2) mg/dL POC Creatinine (0.6-1.2) GFR Calculation Glucose (70-105) mg/dL POC Glucose (70-105) Calcium (8.6-10.4) mg/dL POC WB Ioniz Calcium (1.16-1.32) Total Bilirubin 0.6 (0.1-1.0) mg/dL Direct Bilirubin 0.2 (<0.3) mg/dL AST 28 (<40) U/L ALT 20 (<40) U/L Alkaline Phosphatase 86 (39-117) U/L NT-Pro-B Natriuret Pep (<450.0) pg/mL Total Protein 6.6 (5.9-8.4) gm/dL Albumin 3.4 (3.2-5.2) gm/dL Globulin 3.2 (2.2-3.7) gm/dL Albumin/Globulin Ratio (1.0-2.3) Procalcitonin (<0.10) ng/mL POC Troponin I (0.00-0.08) EKG Data EKG #1: EKG results narrative: ECG shows atrial fibrillation 114 beats minute, normal axis, narrow QRS QTc is 435. There is no ST segment deviations or hyperacute T waves. My interpretation is atrial fibrillation with RVR. Discharge Plan Patient/Caregiver Discharge Instructions Pt seen by INSURANCE APPRAISER/PA only: Yes Clinical Impression: Sepsis, Pneumonia, Atrial fibrillation with rapid ventricular response Activity: increase activity as tolerated Patient Disposition: Xfer As Inpt ([facility]) Condition: Serious Follow up with: Garth Pederson DO [Primary Care Provider] - Prescriptions: No Action (DME) Portable Oxygen Concentrator Qty: 1 0RF Dose Instruction: As directed Rx Instructions: As directed (DME) Portable Nebulizer Qty: 1 0RF Rx Instructions: Use with DuoNeb up to 6 times daily diltiazem HCl 180 mg capsule,extended release 24 hr 180 mg PO QDAY Qty: 90 3RF lisinopril-hydrochlorothiazide 20-25 mg tablet 1 tab PO QDAY Qty: 90 1RF Xarelto 20 mg tablet 20 mg PO QDAY Qty: 90 1RF budesonide-formoterol [Symbicort] 160-4.5 mcg/actuation HFA aerosol inhaler 2 puff INHALATION BID ipratropium-albuterol 0.5 mg-3 mg(2.5 mg base)/3 mL solution for nebulization 3 ml INHALATION DAILY Rx Instructions: 4-5 times per day Spiriva Respimat 1.25 mcg/actuation mist 1 puff inhalation BID
[2022-10-21 18:33] LABS: POC Calcium, Ionized 1.15 (1.16-1.32); POC Creatinine 1.2 (0.6-1.2); POC Potassium 4.5 (3.3-5.1)
--- NOTE | 2022-10-21 19:17 | XRay Report ---
INDICATION: SOB, cough TECHNIQUE: AP portable upright chest x-ray COMPARISON: Previous chest x-rays dated 07/19/2022, 03/03/2022, 06/29/2020 FINDINGS: Lungs:Density at the left lung base consistent with left lower lobe pneumonia. Follow-up radiographs recommended. Right lung is negative. No focal infiltrate or mass Heart, vascular:There is cardiomegaly. No pulmonary congestion or pulmonary edema Mediastinum, delta:No mediastinal widening. No hilar mass Pleura:No detectable pleural effusion Skeletal:Negative. IMPRESSION: 1. Left lower lobe infiltrate consistent with pneumonia. Follow-up regress recommended 2. Cardiomegaly. No pulmonary congestion or pulmonary edema. Interpreted and Authenticated by: Garth Boateng 10/21/22
[2022-10-21 19:50] LABS: Basophils # (Auto) 0.03 K/mcL (0.00-0.30); Basophils % (Auto) 0.2 % (0.0-2.0); Eosinophils # (Auto) 0.11 K/mcL (0.00-0.70); Eosinophils % (Auto) 0.8 % (0.0-7.0); Hematocrit 40.4 % (40.1-51.0); Hemoglobin 13.6 g/dL (13.7-17.5); Lymphocytes # (Auto) 0.97 K/mcL (1.50-4.80); Lymphocytes % (Auto) 6.8 % (15.5-49.0); Mean Corpuscular HGB Conc 33.7 g/dL (31.0-36.0); Mean Platelet Volume 10.1 fL (8.8-12.5); Monocytes # (Auto) 1.77 K/mcL (0.10-0.90); Monocytes % (Auto) 12.5 % (1.0-12.0); Neutrophils % (Auto) 79.3 % (38.0-78.0); Platelet Count 335 K/mcL (140-440); RBC 4.59 M/mcL (4.63-6.08); Red Cell Distribution Width 14.4 % (11.5-14.5); WBC 14.2 K/mcL (4.5-11.0)
[2022-10-21] MEDS ORDERED: cefTRIAXone 1 GM VIAL IV ONE (19:54)
[2022-10-21] MEDS ORDERED: AZITHROMYCIN 250 MG TABLET PO ONE (19:54)
[2022-10-21 20:17] LABS: ALT/SGPT 20 U/L (<40); AST/SGOT 28 U/L (<40); Albumin 3.4 gm/dL (3.2-5.2); Albumin/Globulin Ratio 1.1 (1.0-2.3); Alkaline Phosphatase 86 U/L (39-117); Bilirubin,Total 0.6 mg/dL (0.1-1.0); Blood Urea Nitrogen 35 mg/dL (8-23); Calcium 9.2 mg/dL (8.6-10.4); Carbon Dioxide 28 mmol/L (22-30); Chloride 95 mmol/L (96-108); Globulin 3.2 gm/dL (2.2-3.7); Glomerular Filtration Rate 67; Glucose 102 mg/dL (70-105); proBNP 889.6 pg/mL (<450.0)
[2022-10-21 20:17] LABS: Albumin 3.4 gm/dL (3.2-5.2); Bilirubin,Direct 0.2 mg/dL (<0.3); Bilirubin,Total 0.6 mg/dL (0.1-1.0); Globulin 3.2 gm/dL (2.2-3.7)
--- NOTE | 2022-10-21 21:39 | Internal Med History&Physical ---
HPI History of Present Illness Patient information: Note initiated : 10/21/22 at 9:39 pm Service Date, if different from initiated Date: [] Patient: Christoph Neff 87 y/o M admitted on for Shortness of breath. Chief Complaint: [] History of present illness: Mr. Neff is a 87 year old male with history of COPD on 4 to 5 L nasal cannula oxygen, A-fib on Xarelto presented with 3 days history of increased cough, thick sputum and worsening shortness of breath and chills but no documented fever. No sick contacts. Patient was accompanied by his . Patient has been using his nebulization for 5 times a day without much effect. No sick contacts. Patient states he has a ball of mucus stuck in his throat but he cannot cough up. Patient also reported his p.o. intake has been low for the past 2 to 3 days. On presentation patient was in respiratory distress with respiratory rate up to 26, tachycardia heart rate 110-120s, and blood pressure somewhat soft. Labs showed WBC of 14,000, hemoglobin 13.6. VBG showed pH of 7.36, PCO2 54, lactic acid 1.5. Renal functions unremarkable, liver functions unremarkable, BNP 889. Troponin negative. Procalcitonin 0.39. Verenice negative for influenza and COVID. Chest x-ray showed left lower lobe infiltrate. No pulmonary congestion, pulmonary edema was noted however there was cardiomegaly. EKG showed atrial fibrillation 114 bpm,normal axis, narrow QRS QTc is 435. There is no ST segment deviations or hyperacute T waves. Patient was admitted for sepsis secondary to pneumonia and A-fib with RVR. Review of system Positive for chills, no documented fever No headache, no visual problems Positive for cough, sputum, shortness of breath No nausea or vomiting, reduced p.o. intake No focal deficits Denies depression Physical examination General: Alert, mild respiratory distress Head: No trauma normocephalic Eyes: PERRLA, EOMs intact Neck: Full range of motion, no midline tenderness Cardiovascular: S1 and S2, tachycardia irregularly irregular, heart rate 112, no murmurs heard Respiratory: Poor aeration, some Rales bilaterally, tachypnea mild, on supplemental oxygen, improving after receiving nebs and no more using accessory muscles. GI: Abdomen is soft and nontender to palpation. There is no guarding no rebound tenderness. Negative Grissom sign. Neuro: Patient is alert and oriented x3, no focal deficits Psych: Appropriate mood and affect skin: Warm, no rash, normal color Extremity: + trace edema,negative Homans' sign bilaterally. Dorsalis pedis +2 bilaterally. Assessment and plan Sepsis -patient met sepsis criteria, presented with tachycardia 120s, tachypnea 26 respiratory rate, leukocytosis of 14,000 and pneumonia Left lower lobe pneumonia Chest x-ray with left lower lobe infiltrate. No recent antibiotic use. Will manage with IV ceftriaxone, IV azithromycin, IV Solu-Medrol, nebulization therapy, antitussives, supplemental oxygen. Judicious IV fluids, follow sputum culture and blood culture COPD exacerbation Managed with IV antibiotics, nebulization therapy, pulmonary toileting supplemental oxygen Obstructive sleep apnea Patient with hypercapnia VBG. Acute on chronic hypoxic and hypercapnic respiratory failure Secondary to above. Wean oxygen as tolerated. A-fib with RVR Heart rate in the range of 110s-mid 120s. Blood pressure was initially soft improved with IV bolus. Will resume home dose of diltiazem and Xarelto. May need IV diltiazem if rate is not controlled Hypertension Blood pressure now stable Anxiety and depression Stable DVT prophylaxis with Xarelto CODE STATUS. Wishes to be full code as of now. He has 5 wishes and will bring paperwork tomorrow Total time taken 55 min [facility] All Active Problems (Updated 10/21/22 @ 21:29 by Jos Chapa PA-C) Dyspnea (Chronic) Community acquired pneumonia (Chronic) Atrial fibrillation with RVR (Chronic) Emphysema of lung (Chronic) COPD (chronic obstructive pulmonary disease) (Chronic) Atrial fibrillation (Chronic) Hypertension, essential (Chronic) Rheumatic fever (Chronic) Bowel disease (Chronic) Pneumonia (Chronic ~08/2017) Contracture of palmar fascia (Chronic) Impaired fasting glucose (Chronic) Melanoma of skin (Chronic) Postnasal drip (Chronic) Rhinitis, allergic (Chronic) Urinary frequency (Chronic) History of tobacco use (Chronic) Peripheral edema (Chronic) 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) Left ventricular hypertrophy (Chronic) Mild aortic sclerosis (Chronic) Tricuspid regurgitation (Chronic) Mitral regurgitation (Chronic) Obstructive sleep apnea (Chronic) Primary generalized hypertrophic osteoarthrosis (Chronic) Malignant melanoma (Chronic) 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 (Chronic) Tobacco use (Chronic) Seborrheic keratosis (Chronic) Actinic keratosis (Chronic) Other benign neoplasm of skin of trunk (Chronic) Osteoarthritis (Chronic) Sleep-related hypoventilation (Chronic) Major depressive disorder (Chronic) Foreign body in right upper extremity (Acute) 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) Lentigines (Chronic) Hemangioma (Chronic) Actinic keratoses (Chronic) Chronic hypoxemic respiratory failure (Chronic) Medicare annual wellness visit, subsequent (Acute) SOB (shortness of breath) (Acute) Pneumonia (Acute) A-fib (Acute) Sepsis (Acute) History of COPD (Acute) Hyponatremia (Acute) Pigmented skin lesion suspicious for malignant neoplasm (Acute) Skin ulcer (Acute) Atrial fibrillation with rapid ventricular response (Acute) Elevated PSA, between 10 and less than 20 ng/ml (Chronic) COPD with acute exacerbation (Acute) Sepsis (Acute) Pneumonia (Acute) Atrial fibrillation with rapid ventricular response (Acute) Medical History Actinic keratoses Actinic keratosis Atrial fibrillation Benign hypertensive heart disease without heart failure Bowel disease Chronic hypoxemic respiratory failure Contracture of palmar fascia COPD (chronic obstructive pulmonary disease) Elevated PSA, between 10 and less than 20 ng/ml Emphysema of lung Hemangioma History of tobacco use Hypertension, essential Impaired fasting glucose Left ventricular hypertrophy Lentigines 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 Malignant melanoma R arm Medicare annual wellness visit, subsequent Melanoma of skin Mild aortic sclerosis Mitral regurgitation Neoplasm of uncertain behavior of skin Obstructive sleep apnea Osteoarthritis Other benign neoplasm of skin of trunk Peripheral edema Pneumonia (~08/2017) In hospital 08/29/2017-09/01/2017 with pneumonia Postnasal drip Primary generalized hypertrophic osteoarthrosis Rheumatic fever x2 Rhinitis, allergic Seborrheic keratosis Sleep-related hypoventilation Solar elastosis Tobacco use former smoker Tricuspid regurgitation Urinary frequency Surgical History H/O colonoscopy 2012 H/O hand surgery 2016 History of herniorrhaphy 2001 History of melanoma excision right arm skin cancer Hx of appendectomy 2011 Family History Father Cancer Mother , at 93 Dementia TIA (transient ischemic attack) Sister Diabetes Brother Stroke Other Lung cancer Social History marital status: smoking status: Former smoker quit date: 05/26/81 alcohol intake frequency: former alcohol drinker substance use type: does not use MEDS/ALLERGIES Home Medications and Allergies Home Medications Medication Instructions Recorded Confirmed Type budesonide-formoterol HFA 160 2 puff inhalation BID 05/20/17 10/21/22 History mcg-4.5 mcg/actuation aerosol inhaler (Symbicort) ipratropium 0.5 mg-albuterol 3 mg 3 ml inhalation DAILY 05/20/17 10/21/22 History (2.5 mg base)/3 mL nebulization soln Portable Oxygen Concentrator #1 ea 04/20/18 10/21/22 Rx Portable Nebulizer #1 ea 02/16/19 10/21/22 Rx diltiazem HCl 180 mg capsule,24 180 mg PO QDAY #90 caps 06/28/22 10/21/22 Rx hr,extended release tiotropium bromide 1.25 1 puff inhalation BID 08/12/22 10/21/22 History mcg/actuation mist for inhalation (Spiriva Respimat) lisinopril 20 1 tab PO QDAY #90 tabs 09/30/22 10/21/22 Rx mg-hydrochlorothiazide 25 mg tablet rivaroxaban 20 mg tablet (Xarelto) 20 mg PO QDAY #90 tabs 09/30/22 10/21/22 Rx Allergies Allergy/AdvReac Type Severity Reaction Status Date / Time No Known Drug Allergies Allergy Verified 10/21/22 18:11 EXAM Constitutional Vitals: Temp Pulse Resp BP Pulse Ox O2 Del Method O2 Flow Rate 98.0 F 81 19 95/57 94 Nasal Cannula 3 10/21/22 18:07 10/21/22 21:16 10/21/22 21:16 10/21/22 21:16 10/21/22 21:16 10/21/22 21:16 10/21/22 21:16 DATA Data Completed and Pending Labs: Labs from last 24 hours 10/21/22 10/21/22 10/21/22 18:38 18:33 18:33 WBC 14.2 H RBC 4.59 L Hgb 13.6 L Hct 40.4 POC Hct MCV 88.0 MCH 29.6 MCHC 33.7 RDW 14.4 Plt Count 335 MPV 10.1 Immature Gran % (Auto) 0.4 Neut % (Auto) 79.3 H Lymph % (Auto) 6.8 L [place] % (Auto) 12.5 H Eos % (Auto) 0.8 Baso % (Auto) 0.2 Lymph # (Auto) 0.97 L [place] # (Auto) 1.77 H Eos # (Auto) 0.11 Baso # (Auto) 0.03 Immature Gran # 0.05 Absolute Neutrophils 11.26 H POC VBG pH POC VBG pCO2 at Temp POC VBG pO2 POC VBG HCO3 POC VBG Total CO2 POC Venous O2 Sat POC VBG Base Excess VBG Lactic Acid POC Sodium Sodium POC Potassium Potassium POC Chloride Chloride Carbon Dioxide POC Total CO2 Anion Gap POC BUN BUN Creatinine POC Creatinine GFR Calculation Glucose POC Glucose Calcium POC WB Ioniz Calcium Total Bilirubin 0.6 Direct Bilirubin 0.2 AST 28 ALT 20 Alkaline Phosphatase 86 NT-Pro-B Natriuret Pep Total Protein 6.6 Albumin 3.4 Globulin 3.2 Albumin/Globulin Ratio Procalcitonin 0.39 H POC Troponin I 10/21/22 10/21/22 10/21/22 18:33 18:30 18:28 WBC RBC Hgb Hct POC Hct MCV MCH MCHC RDW Plt Count MPV Immature Gran % (Auto) Neut % (Auto) Lymph % (Auto) [place] % (Auto) Eos % (Auto) Baso % (Auto) Lymph # (Auto) [place] # (Auto) Eos # (Auto) Baso # (Auto) Immature Gran # Absolute Neutrophils POC VBG pH 7.36 POC VBG pCO2 at Temp 54.7 H POC VBG pO2 26 POC VBG HCO3 30.7 H POC VBG Total CO2 32.0 H POC Venous O2 Sat 45.0 POC VBG Base Excess 5.0 H* VBG Lactic Acid 1.5 POC Sodium Sodium 134 POC Potassium Potassium 4.5 POC Chloride Chloride 95 L Carbon Dioxide 28 POC Total CO2 Anion Gap 11.0 POC BUN BUN 35 H Creatinine 1.0 POC Creatinine GFR Calculation 67 Glucose 102 POC Glucose Calcium 9.2 POC WB Ioniz Calcium Total Bilirubin 0.6 Direct Bilirubin AST 28 ALT 20 Alkaline Phosphatase 86 NT-Pro-B Natriuret Pep 889.6 H Total Protein 6.6 Albumin 3.4 Globulin 3.2 Albumin/Globulin Ratio 1.1 Procalcitonin POC Troponin I < 0.02 10/21/22 18:28 WBC RBC Hgb Hct POC Hct 44.0 MCV MCH MCHC RDW Plt Count MPV Immature Gran % (Auto) Neut % (Auto) Lymph % (Auto) [place] % (Auto) Eos % (Auto) Baso % (Auto) Lymph # (Auto) [place] # (Auto) Eos # (Auto) Baso # (Auto) Immature Gran # Absolute Neutrophils POC VBG pH POC VBG pCO2 at Temp POC VBG pO2 POC VBG HCO3 POC VBG Total CO2 POC Venous O2 Sat POC VBG Base Excess VBG Lactic Acid POC Sodium 133 Sodium POC Potassium 4.5 Potassium POC Chloride 95 L Chloride Carbon Dioxide POC Total CO2 30.0 Anion Gap POC BUN 36 H BUN Creatinine POC Creatinine 1.2 GFR Calculation Glucose POC Glucose 109 H Calcium POC WB Ioniz Calcium 1.15 L Total Bilirubin Direct Bilirubin AST ALT Alkaline Phosphatase NT-Pro-B Natriuret Pep Total Protein Albumin Globulin Albumin/Globulin Ratio Procalcitonin POC Troponin I A/P Time Spent With Patient Time: Total time spent is greater than 50% in coordination of care (as documented) at patient's floor/unit and/or counseling patient:
[2022-10-21] MEDS ORDERED: BENZONATATE 100 MG CAPSULE PO SCH (22:45)
[2022-10-21] MEDS ORDERED: LACTULOSE 20 GM/30 ML ORAL.SOL PO PRN (23:21)
[2022-10-21] MEDS ORDERED: ACETAMINOPHEN 325 MG TABLET PO PRN (23:21)
[2022-10-21] MEDS ORDERED: ONDANSETRON 4 MG/2 ML VIAL IV PRN (23:21)
[2022-10-21] MEDS ORDERED: SENNOSIDES 1 TABLET PO PRN (23:21)
[2022-10-21] MEDS ORDERED: BUDESONIDE 0.5 MG/2 ML AMPUL.NEB ONE (23:30)
[2022-10-21] MEDS: IPRATROPIUM/ALBUTEROL 3 ML AMPUL.NEB NEB SCH (23:30)
[2022-10-21] MEDS: BUDESONIDE 0.5 MG/2 ML AMPUL.NEB NEB SCH (23:30)
[2022-10-22] MEDS: guaiFENesin 600 MG TAB.SR.12H PO SCH ×3 (00:04→20:11)
[2022-10-22] MEDS: 0.9 % SODIUM CHLORIDE 10 ML SYRINGE IV SCH ×4 (00:04→21:34)
[2022-10-22] MEDS ORDERED: guaiFENesin 600 MG TAB.SR.12H PO ONE (00:06)
[2022-10-22] MEDS: methylPREDNISolone SOD SUCC 40 MG/ML VIAL IV SCH ×3 (05:24→21:34)
[2022-10-22] MEDS ORDERED: methylPREDNISolone SOD SUCC 40 MG/ML VIAL IV ONE (05:26)
[2022-10-22 06:25] LABS: Basophils # (Auto) 0.01 K/mcL (0.00-0.30); Basophils % (Auto) 0.1 % (0.0-2.0); Eosinophils # (Auto) 0 K/mcL (0.00-0.70); Eosinophils % (Auto) 0 % (0.0-7.0); Hematocrit 36.1 % (40.1-51.0); Hemoglobin 11.6 g/dL (13.7-17.5); Lymphocytes # (Auto) 0.18 K/mcL (1.50-4.80); Lymphocytes % (Auto) 2.2 % (15.5-49.0); Mean Cell Volume 92.3 fL (80.0-100.0); Mean Corpuscular HGB Conc 32.1 g/dL (31.0-36.0); Mean Platelet Volume 9.7 fL (8.8-12.5); Monocytes # (Auto) 0.19 K/mcL (0.10-0.90); Monocytes % (Auto) 2.3 % (1.0-12.0); Neutrophils % (Auto) 94.8 % (38.0-78.0); Platelet Count 250 K/mcL (140-440); RBC 3.91 M/mcL (4.63-6.08); Red Cell Distribution Width 14.4 % (11.5-14.5); WBC 8.3 K/mcL (4.5-11.0)
[2022-10-22 06:38] LABS: ALT/SGPT 17 U/L (<40); AST/SGOT 23 U/L (<40); Albumin 2.6 gm/dL (3.2-5.2); Albumin/Globulin Ratio 0.9 (1.0-2.3); Alkaline Phosphatase 72 U/L (39-117); Bilirubin,Total 0.2 mg/dL (0.1-1.0); Blood Urea Nitrogen 30 mg/dL (8-23); Calcium 8.9 mg/dL (8.6-10.4); Carbon Dioxide 28 mmol/L (22-30); Chloride 97 mmol/L (96-108); Globulin 2.9 gm/dL (2.2-3.7); Glomerular Filtration Rate 76; Glucose 213 mg/dL (70-105)
[2022-10-22] MEDS: DILTIAZEM 180 MG CAP.XL.24H PO SCH (08:02)
[2022-10-22] MEDS: RIVAROXABAN 20 MG TABLET PO SCH (08:02)
[2022-10-22] MEDS: FAMOTIDINE 20 MG TABLET PO SCH ×2 (08:03→20:11)
[2022-10-22] MEDS: DOCUSATE SODIUM 100 MG CAPSULE PO SCH ×2 (08:03→20:11)
[2022-10-22] MEDS: IPRATROPIUM/ALBUTEROL 3 ML AMPUL.NEB NEB SCH ×4 (08:39→21:25)
[2022-10-22] MEDS: BUDESONIDE 0.5 MG/2 ML AMPUL.NEB NEB SCH ×2 (08:39→21:25)
--- NOTE | 2022-10-22 12:44 | EKG ---
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
--- NOTE | 2022-10-22 12:56 | Internal Med Progress Note ---
SUBJECTIVE Subjective Patient information: Note initiated : 10/22/22 at 12:50 pm Service Date, if different from initiated Date: [] Patient: Christoph Neff 87 y/o M admitted on 10/21/22 for Shortness of breath. Chief Complaint: [] Additional PMFSH (Level 3 Only): History of present illness: Mr. Neff is a 87 year old male with history of COPD on 4 to 5 L nasal cannula oxygen, A-fib on Xarelto presented with 3 days history of increased co ugh, thick sputum and worsening shortness of breath and chills but no documented fever. No sick contacts. Patient was accompanied by his . Patient has been using his nebulization for 5 times a day without much effect. No sick contacts. Patient states he has a ball of mucus stuck in his throat but he cannot cough up. Patient also reported his p.o. intake has been low for the past 2 to 3 days. On presentation patient was in respiratory distress with respiratory rate up to 26, tachycardia heart rate 110-120s, and blood pressure somewhat soft. Labs showed WBC of 14,000, hemoglobin 13.6. VBG showed pH of 7.36, PCO2 54, lactic acid 1.5. Renal functions unremarkable, liver functions unremarkable, BNP 889. Troponin negative. Procalcitonin 0.39. Verenice negative for influenza and COV ID. Chest x-ray showed left lower lobe infiltrate. No pulmonary congestion, pulmonary edema was noted however there was cardiomegaly. EKG showed atrial fibrillation 114 bpm,normal axis, narrow QRS QTc is 435. There is no ST segment deviations or hyperacute T waves. Patient was admitted for sepsis secondary to pneumonia and A-fib with RVR. 5/30. Patient is afebrile overnight. He ambulated and was quite short of breath and tachypneic after that. His heart rate tends to go up to 110s when e xerting himself. Leukocytosis resolved WBC is 8000, sodium is low at 131 consistent with hyponatremia. Sputum culture is pending. Review of system No fever or chills No headache, no visual problems Positive for cough, sputum, shortness of breath No nausea or vomiting, reduced p.o. intake No focal deficits Denies depression Physical examination General: Alert, mild respiratory distress Head: No trauma normocephalic Eyes: PERRLA, EOMs intact Neck: Full range of motion, no midline tenderness Cardiovascular: S1 and S2, tachycardia irregularly irregular, heart rate 112, no murmurs heard Respiratory: Globally reduced air entry however improved from before, no Rales. On supplemental oxygen 3 L nasal cannula GI: Abdomen is soft and nontender to palpation. Neuro: Patient is alert and oriented x3, no focal deficits Psych: Appropriate mood and affect skin: Warm, no rash, normal color Extremity: No edema or rashes Assessment and plan Sepsis -patient met sepsis criteria, presented with tachycardia 120s, tachypnea 26 respiratory rate, leukocytosis of 14,000 and pneumonia Left lower lobe pneumonia Chest x-ray with left lower lobe infiltrate. No recent antibiotic use. Continue IV ceftriaxone, IV azithromycin, IV Solu-Medrol, nebulization therapy, antitussives, supplemental oxygen. Follow sputum culture and blood culture COPD exacerbation Managed with IV antibiotics, nebulization therapy, pulmonary toileting supplemental oxygen. Patient will benefit from pulmonary rehab as an outpatient Obstructive sleep apnea Patient with hypercapnia on VBG. Patient will benefit from sleep study as an outpatient Acute on chronic hypoxic and hypercapnic respiratory failure Secondary to above. Wean oxygen as tolerated. A-fib with RVR Currently heart rate under control. Continue home dose diltiazem and Xarelto. Hypertension Stable Anxiety and depression Stable DVT prophylaxis with Xarelto CODE STATUS. DNR/DNI. Patient signed POLST form. This is in accordance with his 5 wishes Total time taken 45 min Constitutional Vitals: Vital Signs Temp Pulse Resp BP Pulse Ox O2 Del Method O2 Flow Rate 97.8 F 96 H 14 107/74 91 Nasal Cannula 3 10/22/22 12:01 10/22/22 10:06 10/22/22 12:01 10/22/22 12:01 10/22/22 12:01 10/22/22 12:01 10/22/22 12:01 Period Temp Pulse Resp BP Sys/Richardson Pulse Ox O2 Del Method O2 Flow Rate Last 24 Hr 97.1 F-98.7 F 66-124 14-32 95-148/42-115 87-99 Nasal Cannula- Room Air 3-5 Intake and Output 10/22/22 10/22/22 10/22/22 03:59 11:59 19:59 Intake Total 500 400 240 Output Total 725 600 Balance -225 -200 240 Weight 84.005 kg Intake & Output: Intake & Output 10/22/22 10/22/22 10/22/22 03:59 11:59 19:59 Intake Total 500 400 240 Output Total 725 600 Balance -225 -200 240 Weight 84.005 kg Intake: IV 500 Sodium Chloride 0.9% 500 ml @ 500 Wide Open IV BOLUS ONE Rx#: [id number] Oral 400 240 Output: Void Amount 725 600 Other: Meal Breakfast Lunch Percent of Meal Consumed 75% 50% Feeding Ability Independent Independent Urine Appearance Clear Clear Urine Color Yellow Yellow Urine Odor Strong OBJ DATA Labs 10/22/22 05:22 10/22/22 05:22 Labs: Abnormal Lab Results 10/22/22 10/22/22 10/21/22 05:22 05:22 18:33 WBC RBC 3.91 L Hgb 11.6 L Hct 36.1 L Immature Gran % (Auto) 0.6 H Neut % (Auto) 94.8 H Lymph % (Auto) 2.2 L [place] % (Auto) Lymph # (Auto) 0.18 L [place] # (Auto) Absolute Neutrophils POC VBG pCO2 at Temp POC VBG HCO3 POC VBG Total CO2 POC VBG Base Excess Sodium 131 L POC Chloride Chloride Anion Gap 6.0 L POC BUN BUN 30 H Glucose 213 H POC Glucose POC WB Ioniz Calcium NT-Pro-B Natriuret Pep Total Protein 5.5 L Albumin 2.6 L Albumin/Globulin Ratio 0.9 L Procalcitonin 0.39 H 10/21/22 10/21/22 10/21/22 18:33 18:33 18:28 WBC 14.2 H RBC 4.59 L Hgb 13.6 L Hct Immature Gran % (Auto) Neut % (Auto) 79.3 H Lymph % (Auto) 6.8 L [place] % (Auto) 12.5 H Lymph # (Auto) 0.97 L [place] # (Auto) 1.77 H Absolute Neutrophils 11.26 H POC VBG pCO2 at Temp 54.7 H POC VBG HCO3 30.7 H POC VBG Total CO2 32.0 H POC VBG Base Excess 5.0 H* Sodium POC Chloride Chloride 95 L Anion Gap POC BUN BUN 35 H Glucose POC Glucose POC WB Ioniz Calcium NT-Pro-B Natriuret Pep 889.6 H Total Protein Albumin Albumin/Globulin Ratio Procalcitonin 10/21/22 18:28 WBC RBC Hgb Hct Immature Gran % (Auto) Neut % (Auto) Lymph % (Auto) [place] % (Auto) Lymph # (Auto) [place] # (Auto) Absolute Neutrophils POC VBG pCO2 at Temp POC VBG HCO3 POC VBG Total CO2 POC VBG Base Excess Sodium POC Chloride 95 L Chloride Anion Gap POC BUN 36 H BUN Glucose POC Glucose 109 H POC WB Ioniz Calcium 1.15 L NT-Pro-B Natriuret Pep Total Protein Albumin Albumin/Globulin Ratio Procalcitonin Meds: Medications Acetaminophen (Acetaminophen 325 Mg Tablet) 650 mg PO Q6HP PRN; Protocol PRN Reason: Per Pain Protocol/Fever > 101 Albuterol/Ipratropium (Ipratropium/Albuterol 3 Ml Ampul.Neb) 3 ml NEB QID [facility] Last Admin: 10/22/22 12:36 Dose: 3 ml Benzonatate (Benzonatate 100 Mg Capsule) 100 mg PO TIDP [facility] Budesonide (Budesonide 0.5 Mg/2 Ml Ampul.Neb) 0.5 mg NEB Q12 [facility] Last Admin: 10/22/22 08:39 Dose: 0.5 mg Diltiazem HCl (Diltiazem 180 Mg Cap.Xl.24h) 180 mg PO QDAY [facility] Last Admin: 10/22/22 08:02 Dose: 180 mg Docusate Sodium (Docusate Sodium 100 Mg Capsule) 100 mg PO BID [facility] Last Admin: 10/22/22 08:03 Dose: 100 mg Famotidine (Famotidine 20 Mg Tablet) 20 mg PO BID [facility] Last Admin: 10/22/22 08:03 Dose: 20 mg Guaifenesin (Guaifenesin 600 Mg Tab.Sr.12h) 1,200 mg PO BID [facility] Last Admin: 10/22/22 08:03 Dose: 1,200 mg Ceftriaxone Sodium 2 gm/ (Dextrose) 50 mls @ 100 mls/hr IV Q24H [facility]; Protocol Azithromycin 500 mg/ Dextrose 250 mls @ 250 mls/hr IV Q24H [facility]; Protocol Stop: 10/23/22 21:59 Lactulose (Lactulose 20 Gm/30 Ml Oral.Tracey) 10 gm PO DAILYP PRN PRN Reason: Constipation Methylprednisolone Sodium Succinate (Methylprednisolone Sod Succ 40 Mg/Ml Vial) 40 mg IV Q8 [facility] Last Admin: 10/22/22 05:24 Dose: 40 mg Ondansetron HCl (Ondansetron 4 Mg/2 Ml Vial) 4 mg IV Q4HP PRN; Protocol PRN Reason: Nausea And Vomiting Rivaroxaban (Rivaroxaban 20 Mg Tablet) 20 mg PO QDAY [facility] Last Admin: 10/22/22 08:02 Dose: 20 mg Senna (Sennosides 1 Tablet) 2 tab PO HSP PRN PRN Reason: Constipation Sodium Chloride (0.9 % Sodium Chloride 10 Ml Syringe) 10 ml IV Q8 [facility] Last Admin: 10/22/22 05:25 Dose: 10 ml A/P Time Spent With Patient Time: Total time spent is greater than 50% in coordination of care (as documented) at patient's floor/unit and/or counseling patient: QUALITY VTE Deep Vein Thrombosis/Pulmonary Embolism Present on Admission: No
[2022-10-22] MEDS: cefTRIAXone 2 GM in DEXTROSE 5% IN WATER 50 ML IV SCH (14:12)
[2022-10-22] MEDS ORDERED: AZITHROMYCIN 500 MG in DEXTROSE 5% IN WATER 250 ML IV SCH (21:00)
[2022-10-23] MEDS: methylPREDNISolone SOD SUCC 40 MG/ML VIAL IV SCH (05:19)
[2022-10-23] MEDS: 0.9 % SODIUM CHLORIDE 10 ML SYRINGE IV SCH (05:19)
[2022-10-23 06:26] LABS: Basophils # (Auto) 0.01 K/mcL (0.00-0.30); Basophils % (Auto) 0.1 % (0.0-2.0); Eosinophils # (Auto) 0 K/mcL (0.00-0.70); Eosinophils % (Auto) 0 % (0.0-7.0); Hematocrit 39.9 % (40.1-51.0); Lymphocytes # (Auto) 0.32 K/mcL (1.50-4.80); Lymphocytes % (Auto) 2.5 % (15.5-49.0); Mean Cell Volume 90.7 fL (80.0-100.0); Mean Corpuscular HGB Conc 32.6 g/dL (31.0-36.0); Mean Platelet Volume 9.2 fL (8.8-12.5); Monocytes # (Auto) 0.79 K/mcL (0.10-0.90); Monocytes % (Auto) 6.1 % (1.0-12.0); Neutrophils % (Auto) 90.9 % (38.0-78.0); Platelet Count 372 K/mcL (140-440); Red Cell Distribution Width 13.8 % (11.5-14.5)
[2022-10-23 06:46] LABS: ALT/SGPT 31 U/L (<40); AST/SGOT 38 U/L (<40); Albumin 3.3 gm/dL (3.2-5.2); Alkaline Phosphatase 80 U/L (39-117); Bilirubin,Total 0.2 mg/dL (0.1-1.0); Blood Urea Nitrogen 29 mg/dL (8-23); Calcium 9.4 mg/dL (8.6-10.4); Carbon Dioxide 25 mmol/L (22-30); Chloride 96 mmol/L (96-108); Globulin 3.3 gm/dL (2.2-3.7); Glomerular Filtration Rate 76; Glucose 114 mg/dL (70-105)
[2022-10-23] MEDS: IPRATROPIUM/ALBUTEROL 3 ML AMPUL.NEB NEB SCH ×2 (08:05→12:07)
[2022-10-23] MEDS: BUDESONIDE 0.5 MG/2 ML AMPUL.NEB NEB SCH (08:05)
[2022-10-23] MEDS: DOCUSATE SODIUM 100 MG CAPSULE PO SCH (08:50)
[2022-10-23] MEDS: FAMOTIDINE 20 MG TABLET PO SCH (08:50)
[2022-10-23] MEDS: guaiFENesin 600 MG TAB.SR.12H PO SCH (08:50)
[2022-10-23] MEDS: DILTIAZEM 180 MG CAP.XL.24H PO SCH (08:50)
[2022-10-23] MEDS: RIVAROXABAN 20 MG TABLET PO SCH (08:51)
[2022-10-23] MEDS: cefTRIAXone 2 GM in DEXTROSE 5% IN WATER 50 ML IV SCH (08:51)
--- NOTE | 2022-10-23 12:25 | Discharge Summary ---
Discharge Provider Provider IMPORTANT FOLLOW-UP INFORMATION FOR PCP: Patient information: Note initiated : 10/23/22 at 12:23 pm Service Date, if different from initiated Date: [] Patient: Christoph Neff 87 y/o M admitted on 10/21/22 for Shortness of breath. Chief Complaint: [] Date of admission: 10/21/22 23:16 Discharge date: 10/23/22 Primary care physician: Garth Pederson DO Consults: 10/21/22 Consult to Physician [CONS] Stat Comment: Consulting Provider: Gio Cheek Reason For Exam: Physician to Consult COURSE Hospital Course Hospital course: Mr. Neff is a 87 year old male with history of COPD on 4 to 5 L nasal cannula oxygen, A-fib on Xarelto presented with 3 days history of increased cough, thick sputum and worsening shortness of breath and chills but no documented fever. No sick contacts. Patient was accompanied by his . Patient has been using his nebulization for 5 times a day without much effect. No sick contacts. Patient states he has a ball of mucus stuck in his throat but he cannot cough up. Patient also reported his p.o. intake has been low for the past 2 to 3 days. On presentation patient was in respiratory distress with respiratory rate up to 26, tachycardia heart rate 110-120s, and blood pressure somewhat soft. Labs showed WBC of 14,000, hemoglobin 13.6. VBG showed pH of 7.36, PCO2 54, lactic acid 1.5. Renal functions unremarkable, liver functions unremarkable, BNP 889. Troponin negative. Procalcitonin 0.39. Verenice negative for influenza and COVID. Chest x-ray showed left lower lobe infiltrate. No pulmonary congestion, pulmonary edema was noted however there was cardiomegaly. EKG showed atrial fibrillation 114 bpm,normal axis, narrow QRS QTc is 435. There is no ST segment deviations or hyperacute T waves. Patient was admitted for sepsis secondary to pneumonia and A-fib with RVR. 10/22. Patient is afebrile overnight. He ambulated and was quite short of breath and tachypneic after that. His heart rate tends to go up to 110s when exerting himself. Leukocytosis resolved WBC is 8000, sodium is low at 131 consistent with hyponatremia. Sputum culture is pending. 10/23. No acute events. Pt ambulated in [place] and did well, O2 requirements are at baseline 3L NC. He has likely reactive leukocytosis of 13,000. Procalcitonin checked is 0.39. He feels he is close to baseline and requesting to go home. Discharge diagnoses Sepsis -patient met sepsis criteria, presented with tachycardia 120s, tachypnea 26 respiratory rate, leukocytosis of 14,000 and pneumonia. Left lower lobe pneumonia Chest x-ray with left lower lobe infiltrate. No recent antibiotic use. Received IV ceftriaxone, IV azithromycin, IV Solu-Medrol, nebulization therapy, antitussives, supplemental oxygen.Sputum culture pending, blood culture negative to date. Transition to po cefdinir, azithromycin and po prednisone on discharge. COPD exacerbation Received IV antibiotics, nebulization therapy, pulmonary toileting supplemental oxygen. Transition to po cefdinir, azithromycin and po prednisone on discharge. Patient will benefit from pulmonary rehab as an outpatient. Obstructive sleep apnea Patient with hypercapnia on VBG. Patient will benefit from sleep study as an outpatient Acute on chronic hypoxic and hypercapnic respiratory failure Secondary to above. Now back to baseline O2 needs. A-fib with RVR Currently heart rate under control. Continue home dose diltiazem and Xarelto. Hypertension Stable Anxiety and depression Stable DVT prophylaxis with Xarelto CODE STATUS. DNR/DNI. Patient signed POLST form. This is in accordance with his 5 wishes Physical examination General: Alert, no acute distress Head: No trauma normocephalic Eyes: PERRLA, EOMs intact Neck: Full range of motion, no midline tenderness Cardiovascular: S1 and S2, irregularly irregular, heart rate 92, no murmurs heard Respiratory: Some end expiratory wheeze, on supplemental oxygen 3 L nasal cannula GI: Abdomen is soft and nontender to palpation. Neuro: Patient is alert and oriented x3, no focal deficits Psych: Appropriate mood and affect skin: Warm, no rash, normal color Extremity: No edema or rashes Total time taken 45 min Discharge diagnosis: Sepsis, Pneumonia, COPD exacerbation Time Spent with Patient Time attestation: Total time spent providing and/or coordinating discharge services: Time spent: Greater than 30 minutes EXAM Constitutional Vitals: Temp Pulse Resp BP Pulse Ox O2 Del Method O2 Flow Rate 97.2 F 75 18 128/81 95 Nasal Cannula 3 10/23/22 12:01 10/23/22 08:21 10/23/22 12:01 10/23/22 12:01 10/23/22 12:01 10/23/22 12:01 10/23/22 12:01 Discharge Data Data Completed and Pending Labs on day of discharge: Labs from last 24 hours 10/23/22 10/23/22 05:48 05:48 WBC 13.0 H RBC 4.40 L Hgb 13.0 L Hct 39.9 L MCV 90.7 MCH 29.5 MCHC 32.6 RDW 13.8 Plt Count 372 MPV 9.2 Immature Gran % (Auto) 0.4 Neut % (Auto) 90.9 H Lymph % (Auto) 2.5 L Emmet % (Auto) 6.1 Eos % (Auto) 0 Baso % (Auto) 0.1 Lymph # (Auto) 0.32 L Emmet # (Auto) 0.79 Eos # (Auto) 0 Baso # (Auto) 0.01 Immature Gran # 0.05 Absolute Neutrophils 11.84 H Sodium 134 Potassium 4.4 Chloride 96 Carbon Dioxide 25 Anion Gap 13.0 BUN 29 H Creatinine 0.9 GFR Calculation 76 Glucose 114 H Calcium 9.4 Total Bilirubin 0.2 AST 38 ALT 31 Alkaline Phosphatase 80 Total Protein 6.6 Albumin 3.3 Globulin 3.3 Albumin/Globulin Ratio 1.0 Preliminary micro results at discharge 10/21/22 20:12 Blood Culture - Preliminary Blood 10/21/22 18:25 Blood Culture - Preliminary Blood Discharge Plan Patient/Caregiver Discharge Instructions Activity: increase activity as tolerated Diet: Cardiac Instructions: COPD (Chronic Obstructive Pulmonary Disease) (GEN), Bacterial Pneumonia (GEN) Activity Restrictions/Additional Instructions: Recommend outpatient sleep study Prescriptions: New benzonatate 100 mg Capsule 100 mg PO TID Qty: 15 0RF guaifenesin [Mucus Relief ER] 600 mg Tablet Extended Release 12hr 1,200 mg PO BID Qty: 10 0RF azithromycin 500 mg tablet 500 mg PO QDAY 3 Days Qty: 3 0RF cefdinir 300 mg capsule 300 mg PO BID Qty: 6 0RF prednisone 50 mg tablet 50 mg PO QDAY Qty: 4 0RF Continued (DME) Portable Oxygen Concentrator Qty: 1 0RF Dose Instruction: As directed Rx Instructions: As directed (DME) Portable Nebulizer Qty: 1 0RF Rx Instructions: Use with DuoNeb up to 6 times daily diltiazem HCl 180 mg capsule,extended release 24 hr 180 mg PO QDAY Qty: 90 3RF lisinopril-hydrochlorothiazide 20-25 mg tablet 1 tab PO QDAY Qty: 90 1RF Xarelto 20 mg tablet 20 mg PO QDAY Qty: 90 1RF budesonide-formoterol [Symbicort] 160-4.5 mcg/actuation HFA aerosol inhaler 2 puff INHALATION BID ipratropium-albuterol 0.5 mg-3 mg(2.5 mg base)/3 mL solution for nebulization 3 ml INHALATION DAILY Rx Instructions: 4-5 times per day Spiriva Respimat 1.25 mcg/actuation mist 1 puff inhalation BID Follow Up Plan Follow up with: Garth Pederson DO [Primary Care Provider] - (1 week) Patient Disposition: Home, Self-Care Prognosis: Serious Overall status at discharge: patient is progressing back to baseline Discharge Orders: Discharge Order (Routine); Ordered 10/23/22 Ordered By: Gio GRAHAM VTE Deep Vein Thrombosis/Pulmonary Embolism Present on Admission: No
== END 2022-10-23 13:45 | disposition home or self-care (01) | DRG 871 ==
LOC: ED 18:07 → ICU 23:16
PROVIDERS: ADMIT Internal Medicine; ATTEND Internal Medicine

== ENCOUNTER 2024-03-25 06:55 | Inpatient (IN) ==
[2024-03-25 08:04] LABS: Basophils # (Auto) 0.04 K/mcL (0.00-0.30); Basophils % (Auto) 0.3 % (0.0-2.0); Eosinophils # (Auto) 0.02 K/mcL (0.00-0.70); Eosinophils % (Auto) 0.1 % (0.0-7.0); Hematocrit 46.5 % (40.1-51.0); Hemoglobin 15.3 g/dL (13.7-17.5); Lymphocytes # (Auto) 1.07 K/mcL (1.50-4.80); Lymphocytes % (Auto) 7.1 % (15.5-49.0); Mean Cell Volume 90.6 fL (80.0-100.0); Mean Corpuscular HGB Conc 32.9 g/dL (31.0-36.0); Mean Platelet Volume 9.3 fL (8.8-12.5); Monocytes # (Auto) 0.99 K/mcL (0.10-0.90); Monocytes % (Auto) 6.6 % (1.0-12.0); Neutrophils % (Auto) 85.1 % (38.0-78.0); Platelet Count 272 K/mcL (140-440); RBC 5.13 M/mcL (4.63-6.08); Red Cell Distribution Width 14.4 % (11.5-14.5)
[2024-03-25] MEDS: DILTIAZEM 25 MG/5 ML VIAL IV ONE (08:12)
[2024-03-25 08:20] LABS: ALT/SGPT 25 U/L (<40); AST/SGOT 43 U/L (<40); Albumin/Globulin Ratio 1.4 (1.0-2.3); Alkaline Phosphatase 92 U/L (39-117); Bilirubin,Total 0.6 mg/dL (0.1-1.0); Blood Urea Nitrogen 32 mg/dL (8-23); Calcium 9.8 mg/dL (8.6-10.4); Carbon Dioxide 23 mmol/L (22-30); Chloride 96 mmol/L (96-108); Globulin 2.9 gm/dL (2.2-3.7); Glomerular Filtration Rate 59; Glucose 115 mg/dL (70-105); Potassium 4.5 mmol/L (3.3-5.1); Sodium 135 mmol/L (133-145)
[2024-03-25] MEDS: DILTIAZEM 180 MG CAP.XL.24H PO ONE (09:29)
[2024-03-25] MEDS: methylPREDNISolone SOD SUCC 125 MG/2 ML VIAL IV ONE (11:04)
[2024-03-25] MEDS: DOXYCYCLINE HYCLATE 100 MG TABLET.ORL PO ONE (11:04)
[2024-03-25 11:49] LABS: Appearance,Urine Clear (Clear); Bilirubin,Urine Negative (Negative); Color,Urine Yellow; Glucose,Urine (UA) Negative (Negative); Ketones,Urine Trace mg/dL (Negative); Leukocyte Esterase,Urine Negative /uL (Negative); Nitrate,Urine Negative (Negative); PH,Urine 5.5 (5.0-9.0); Protein,Urine Negative (Negative); Specific Gravity,Urine >= 1.030 (1.000-1.035); Urine Blood Negative ery/mcL (Negative); Urobilinogen,Urine Normal
[2024-03-25] MEDS ORDERED: IBUPROFEN 600 MG TABLET PO PRN (14:31)
[2024-03-25] MEDS ORDERED: SENNOSIDES 1 TABLET PO PRN (14:31)
[2024-03-25] MEDS ORDERED: morphine 4 MG/ML VIAL IV PRN (14:31)
[2024-03-25] MEDS ORDERED: ACETAMINOPHEN 325 MG TABLET PO PRN (14:31)
[2024-03-25] MEDS ORDERED: BISACODYL 10 MG SUPP.RECT PR PRN (14:31)
[2024-03-25] MEDS ORDERED: guaiFENesin/DEXTROMETHORPHAN 5ML UD CUP PO PRN (14:31)
[2024-03-25] MEDS ORDERED: ONDANSETRON 4 MG/2 ML VIAL IV PRN (14:31)
[2024-03-25] MEDS: DILTIAZEM 125 MG in DEXTROSE 5% IN WATER 100 ML IV SCH (15:40)
[2024-03-25] MEDS: IPRATROPIUM/ALBUTEROL 3 ML AMPUL.NEB NEB SCH (15:41)
[2024-03-25] MEDS: 0.9 % SODIUM CHLORIDE 10 ML SYRINGE IV SCH (15:47)
[2024-03-25] MEDS: DOCUSATE SODIUM 100 MG CAPSULE PO SCH (20:35)
[2024-03-25] MEDS: methylPREDNISolone SOD SUCC 40 MG/ML VIAL IV SCH (20:35)
[2024-03-25] MEDS: NON FORMULARY MEDICATION 1 DOSE MISCELL (Budesonide-Formoterol [Symbicort] 160-4.5 mcg/act INHALATION SCH (22:07)
[2024-03-25] MEDS: TIOTROPIUM BROMIDE INHALATION SCH (22:08)
[2024-03-25] MEDS: [UNRECOGNIZED DRUG - OTHER] INHALATION SCH (22:08)
[2024-03-26 06:44] LABS: Basophils # (Auto) 0.01 K/mcL (0.00-0.30); Basophils % (Auto) 0.1 % (0.0-2.0); Eosinophils # (Auto) 0 K/mcL (0.00-0.70); Eosinophils % (Auto) 0 % (0.0-7.0); Hematocrit 40.6 % (40.1-51.0); Hemoglobin 13.6 g/dL (13.7-17.5); Lymphocytes # (Auto) 0.44 K/mcL (1.50-4.80); Lymphocytes % (Auto) 3.6 % (15.5-49.0); Mean Cell Volume 90.6 fL (80.0-100.0); Mean Corpuscular HGB Conc 33.5 g/dL (31.0-36.0); Monocytes # (Auto) 0.28 K/mcL (0.10-0.90); Monocytes % (Auto) 2.3 % (1.0-12.0); Neutrophils % (Auto) 93.7 % (38.0-78.0); Platelet Count 211 K/mcL (140-440); RBC 4.48 M/mcL (4.63-6.08); Red Cell Distribution Width 13.9 % (11.5-14.5); WBC 12.1 K/mcL (4.5-11.0)
[2024-03-26 06:51] LABS: ALT/SGPT 21 U/L (<40); AST/SGOT 40 U/L (<40); Albumin 3.3 gm/dL (3.2-5.2); Albumin/Globulin Ratio 1.2 (1.0-2.3); Alkaline Phosphatase 73 U/L (39-117); Bilirubin,Total 0.4 mg/dL (0.1-1.0); Blood Urea Nitrogen 32 mg/dL (8-23); Calcium 8.6 mg/dL (8.6-10.4); Carbon Dioxide 22 mmol/L (22-30); Chloride 95 mmol/L (96-108); Globulin 2.7 gm/dL (2.2-3.7); Glomerular Filtration Rate 76; Glucose 145 mg/dL (70-105); Potassium 4.1 mmol/L (3.3-5.1); Sodium 131 mmol/L (133-145)
[2024-03-26 06:52] LABS: Phosphorous 3.4 mg/dL (2.5-4.5)
[2024-03-26] MEDS: PANTOPRAZOLE 40 MG TABLET PO SCH (08:22)
[2024-03-26] MEDS: AZITHROMYCIN 250 MG TABLET PO SCH (08:22)
[2024-03-26] MEDS: DILTIAZEM 180 MG CAP.XL.24H PO SCH (08:22)
[2024-03-26] MEDS: TIOTROPIUM BROMIDE 1.25 MCG INH SCH (08:23)
[2024-03-26] MEDS: Budesonide-Formoterol [Symbicort] 160-4.5 mcg Inhaler INH SCH (08:23)
[2024-03-26] MEDS ORDERED: DILTIAZEM 125 MG in DEXTROSE 5% IN WATER 100 ML IV PRN (10:12)
[2024-03-26] MEDS: predniSONE 20 MG TABLET PO SCH (11:50)
[2024-03-26] MEDS ORDERED: DILTIAZEM 25 MG/5 ML VIAL IV PRN (19:59)
[2024-03-27 06:18] LABS: Basophils # (Auto) 0.02 K/mcL (0.00-0.30); Basophils % (Auto) 0.1 % (0.0-2.0); Eosinophils # (Auto) 0.01 K/mcL (0.00-0.70); Eosinophils % (Auto) 0 % (0.0-7.0); Hematocrit 41.4 % (40.1-51.0); Hemoglobin 13.9 g/dL (13.7-17.5); Lymphocytes # (Auto) 0.38 K/mcL (1.50-4.80); Lymphocytes % (Auto) 1.6 % (15.5-49.0); Mean Cell Volume 89.2 fL (80.0-100.0); Mean Corpuscular HGB Conc 33.6 g/dL (31.0-36.0); Mean Platelet Volume 9.3 fL (8.8-12.5); Monocytes # (Auto) 0.97 K/mcL (0.10-0.90); Monocytes % (Auto) 4.1 % (1.0-12.0); Neutrophils % (Auto) 93.9 % (38.0-78.0); Platelet Count 241 K/mcL (140-440); RBC 4.64 M/mcL (4.63-6.08); Red Cell Distribution Width 13.8 % (11.5-14.5); WBC 23.8 K/mcL (4.5-11.0)
[2024-03-27 06:55] LABS: ALT/SGPT 23 U/L (<40); AST/SGOT 39 U/L (<40); Albumin 3.4 gm/dL (3.2-5.2); Albumin/Globulin Ratio 1.3 (1.0-2.3); Alkaline Phosphatase 70 U/L (39-117); Bilirubin,Total 0.3 mg/dL (0.1-1.0); Blood Urea Nitrogen 34 mg/dL (8-23); Carbon Dioxide 25 mmol/L (22-30); Chloride 101 mmol/L (96-108); Globulin 2.7 gm/dL (2.2-3.7); Glomerular Filtration Rate 79; Glucose 150 mg/dL (70-105); Phosphorous 2.9 mg/dL (2.5-4.5); Potassium 4.2 mmol/L (3.3-5.1); Sodium 137 mmol/L (133-145)
[2024-03-27] MEDS ORDERED: NON FORMULARY MEDICATION 1 DOSE MISCELL (Lisinopril-Hydrochlorothiazide 20-25 mg tablet) PO SCH (09:00)
[2024-03-27] MEDS: HYDROCHLOROTHIAZIDE 25 MG TABLET PO SCH (09:02)
[2024-03-27] MEDS: LISINOPRIL 20 MG TABLET PO SCH (09:02)
== END 2024-03-27 12:57 | disposition home health service (06) | DRG 309 ==
LOC: ED 06:55 → ICU 14:07 → MEDSUR 03-26 14:58
PROVIDERS: ADMIT Internal Medicine; ATTEND Internal Medicine